=== PATIENT | female | born 1935 | race Caucasian/White ===

== ENCOUNTER 2024-06-11 15:18 | Inpatient (IN) | payer OTHER, SELFPAY ==
[2024-06-11] VITALS (17 sets, daily range): BP systolic 98–148; BP diastolic 50–130; BMI 37.6; BMI 32.2
[2024-06-11 11:36] LABS: Venous Blood Gas B.E. 3.4 mmol/L (-4 to +4); Venous Blood Gas HCO3 28.5 mmol/L (22-27); Venous Blood Gas pCO2 44 mmHg (35-48); Venous Blood Gas pH 7.42 (7.32-7.43); Venous Blood Gas pO2 40 mmHg (30-50)
[2024-06-11 11:44] LABS: % Basophils 0.3 % (0-2); % Eosinophils 0.6 % (0-6); % Immature Granulocytes 1.2 % (0-0.5); % Neutrophils 85.9 % (42.2-75.2); Absolute Eosinophils 0.1 10^3/uL (0-0.7); Absolute Immature Granulocytes 0.2 10^3/uL (0-0.05); Absolute Lymphocytes 0.8 10^3/uL (1.2-3.4); Absolute Monocytes 0.8 10^3/uL (0.1-0.6); Absolute Neutrophils 11.9 10^3/uL (1.4-6.5); Hemoglobin 13.8 g/dL (12.0-16.0); Mean Corp Hgb Conc. 33.7 g/dL (33.0-37.0); Mean Corpuscular Hgb 31.7 pg (27.0-31.0); Mean Corpuscular Volume 94.3 fL (81.0-99.0); Mean Platelet Volume 10.9 fL (7.4-10.4); Nucleated Red Blood Cells % 0 %; Platelet Count 145 10^3/uL (130-400); Red Blood Cell Count 4.35 10^6/uL (4.20-5.40); Red Cell Dist. Width 15.2 % (11.5-14.5); White Blood Cell Count 13.9 10^3/uL (4.8-10.8)
--- NOTE | 2024-06-11 11:47 | ED.GENMED ---
History of Present Illness
<Westley Harding PA-C - Last Filed: 06/11/24 14:59>
General
Chief Complaint: Breathing Problem
Time Seen by Provider: 06/11/24 11:14
History of Present Illness
History of Present Illness:
88-year-old female with history of CKD and asthma presents to the emergency department for evaluation of shortness of breath for the past 'several days'. Patient was reportedly admitted to [facility] just over 1 month ago for
shortness of breath and diagnosed with an asthma exacerbation. She was discharged home on a lengthy taper of prednisone and still remains on a 5 mg dose of prednisone at this time. She is not chronically on home oxygen. EMS reports there was some
suggestion of possible heart failure however documentation provided at time of my evaluation does not support this. Patient denies any chest pain or leg swelling. Denies any productive cough, fever, chills, or sweats.
Review of Systems
<Westley Harding PA-C - Last Filed: 06/11/24 14:59>
Review of Systems
Allergies reviewed?: Yes
All Other Systems: ROS reviewed and negative except as documented in HPI and ROS
Phy Exam
<Westley Harding PA-C - Last Filed: 06/11/24 14:59>
Physical Exam
Physical Exam:
GEN: Acute respiratory distress, well-developed well-nourished
HEENT: Oral mucosa moist, no scleral icterus, no elevated JVD
Cardiac: Regular rate, no murmurs
Lung: Respiratory distress with tachypnea, accessory muscle use, and conversational dyspnea. Diminished bibasilar breath sounds but otherwise globally clear lungs
MSK: No gross deformity or injuries, no lower extremity edema bilaterally
Skin: Good color, no pallor or jaundice, no rashes
Neuro: AO x3, moves all extremities freely
Psych: Calm, cooperative
Scores
<Westley Harding PA-C - Last Filed: 06/11/24 14:59>
Heart Failure Risk
Heart Failure Risk Score: Not Applicable
Sepsis
<Westley Harding PA-C - Last Filed: 06/11/24 14:59>
Sepsis Screening
Sepsis Assessment: Sepsis Ruled Out
Sepsis Screen
Sepsis Screen: Sepsis Ruled Out
Date: 06/11/24
Time: 14:59
Course
<Westley Harding PA-C - Last Filed: 06/11/24 14:59>
Orders/Labs/Results
Orders:
Orders
06/11/24 11:15
Electrocardiogram (*1) Urgent
Reason for Study: Shortness of Breath
EKG- Treatment ONCE
CR Chest Portable - 1 View Urgent
Comment:
Reason For Exam: SOB
Reason Study Needs to be Portable: Other
06/11/24 11:25
COVID-19 Antigen Urgent
Source: Nasal Swab
Complete Blood Count/With Diff Urgent
Comprehensive Metabolic Panel Urgent
D-Dimer Urgent
NT-proBNP Urgent
PTT Urgent
Comment: ADD ON
Troponin I Urgent
Venous Blood Gas Urgent
%Oxygen/Room Air: 78
Influenza A+B Rapid Molecular Urgent
BETTINA Source: Nasal Swab
Specimen Description:
06/11/24 12:16
CT Chest PE Study Urgent
Comment:
Reason For Exam: SOB, elevated dimer
06/11/24 13:32
Heparin 8,000 units IV NOW STA
Nursing to Place Non Medication Order As Directed
Physician Order: PTT 6 hours after initial start of Heparin infusion
Above order entered?: Yes
06/11/24 13:42
Echo 2D MMode Color/Doppler Stat
Reason for Study: saddle PE
Cardiology Consult: Kaylen Bradley
Heparin 10,000 units .ROUTE .STK-MED ONE
Heparin 01262 Units/250 ml 25,000 units in 250 ml .ROUTE .STK-MED
06/11/24 13:45
Heparin 45748 Units/250 ml 25,000 units in 250 ml IV PER PROTOCOL
Weight to be used for heparin protocol in kilograms (kg):: 99.4
Protocol:: DVT/PE
PTT Goal Range to be used:: PTT 73 to 111 seconds
Order type:: Initial
INITIAL Infusion Dose (UNITS/KG/hr) & then follow protocol:: 18 units/kg/hr
Infusion Dose in UNITS/hr & then follow protocol (UNITS/hr):: 1,800
INFUSION RATE in mL/hr & then follow protocol (mL/hr):: 18
For DVT/PE algorithm, re-bolus for low PTT?: Yes
PTT less than or equal to 64 seconds:: Re-bolus 80 units/kg (max 10,000units). Increase by 400 units/hr
(+ 4mL/hr)
PTT 64.1 to 72.9 seconds:: Re-bolus 40 units/kg (max 5,000 units). Increase by 200 units/hr
(+ 2mL/hr)
PTT 73 to 111 seconds:: Target Range. No change in rate.
PTT 111.1 to 130.9 seconds:: Decrease rate by 200 units/hr (- 2 mL/hr)
PTT 131 to 199.9 seconds:: HOLD for 1 hr. Then decrease by 300 units/hr (- 3mL/hr)
PTT greater than or equal to 200 seconds:: HOLD for 2 hrs & Notify Provider. Then decrease by 400 units/hr
(- 4mL/hr)
Lab follow-up:: Each change, PTT q6h until 2 consecutive are therapeutic. Then
PTT daily.
06/11/24 13:46
Heparin 4,000 units IV PRN PRN
Heparin 8,000 units IV PRN PRN
06/11/24 13:50
Add On- LAB Urgent
Tests Added?: ptt
06/11/24 14:00
Flush (0.9% Sodium Chloride) [Flush (Nss)] See Dose Instructions IV PER PROTOCOL
06/11/24 14:48
Admit/Transfer Patient As Directed
Co-Sign Provider:
Level of Care: Inpatient admission
Assign to:: ICU
Physician / Group: Rhonda Lombardo - hospitalists
Diagnosis: acute PE - saddle
Reason for Hospitalization: acute PE - saddle - IV heparin, hypoxia
Expected length of stay greater than two midnights?: Yes
ELOS- Estimated Length of Stay in days: 3
I certify the patient meets the requirements for IP care: Yes
PRN Pain Medication Management As Directed
May give lesser potent ordered pain med per pt: Yes
preference::
Protocol:: Medication orders for pain may be administered in a
manner that supports deferring to patient preference
when the pt is:
- Requesting an ordered lesser potent pain medication.
Least to most potent pain medications are defined
as: acetaminophen < NSAID < tramadol < opioids
(morphine, oxycodone, hydromorphone).
- Requesting a lesser dose of the same medication IF
ORDERED.
- Requesting a less intrusive route of administration
if both routes are prescribed by the provider (PO <
IV).
06/11/24 14:49
Code Status As Directed
Resuscitation Status: Full Code
06/11/24 19:50
PTT Urgent
Abnormal Lab Results
06/11/24
11:25
WBC 13.9 H 10^3/uL
(4.8-10.8)
MCH 31.7 H pg
(27.0-31.0)
RDW 15.2 H %
(11.5-14.5)
MPV 10.9 H fL
(7.4-10.4)
Abs Immat Gran (auto) 0.2 H 10^3/uL
(0-0.05)
Absolute Neuts (auto) 11.9 H 10^3/uL
(1.4-6.5)
Absolute Lymphs (auto) 0.8 L 10^3/uL
(1.2-3.4)
Absolute Monos (auto) 0.8 H 10^3/uL
(0.1-0.6)
Immature Gran % 1.2 H %
(0-0.5)
Neutrophils % 85.9 H %
(42.2-75.2)
Lymphocytes % 6.0 L %
(20.5-51.1)
D-Dimer 5.12 H ug/mlFEU
(0.00-0.50)
VBG HCO3 28.5 H mmol/L
(22-27)
BUN 25 H mg/dl
(7-17)
Creatinine 1.3 H mg/dL
(0.6-1.0)
Glucose 128 H mg/dl
(70-99)
Troponin I 0.087 H* ng/ml
06/11/24 11:25
06/11/24 11:25
Vital Signs
Initial and Last Documented VS:
Initial Vital Signs
Pulse Resp BP Pulse Ox
100 32 125/76 91
06/11/24 11:13 06/11/24 11:13 06/11/24 11:13 06/11/24 11:13
Last Documented Vital Signs
Temp Pulse Resp BP Pulse Ox
98.7 F 97 24 107/63 97
06/11/24 11:14 06/11/24 14:15 06/11/24 14:15 06/11/24 14:00 06/11/24 14:15
<Polo Lamb MD - Last Filed: 06/11/24 13:54>
Orders/Labs/Results
Orders:
Orders
06/11/24 11:15
Electrocardiogram (*1) Urgent
Reason for Study: Shortness of Breath
EKG- Treatment ONCE
CR Chest Portable - 1 View Urgent
Comment:
Reason For Exam: SOB
Reason Study Needs to be Portable: Other
06/11/24 11:25
COVID-19 Antigen Urgent
Source: Nasal Swab
Complete Blood Count/With Diff Urgent
Comprehensive Metabolic Panel Urgent
D-Dimer Urgent
NT-proBNP Urgent
PTT Urgent
Comment: ADD ON
Troponin I Urgent
Venous Blood Gas Urgent
%Oxygen/Room Air: 78
Influenza A+B Rapid Molecular Urgent
BETTINA Source: Nasal Swab
Specimen Description:
06/11/24 12:16
CT Chest PE Study Urgent
Comment:
Reason For Exam: SOB, elevated dimer
06/11/24 13:32
Heparin 8,000 units IV NOW STA
Nursing to Place Non Medication Order As Directed
Physician Order: PTT 6 hours after initial start of Heparin infusion
Above order entered?: Yes
06/11/24 13:42
Echo 2D MMode Color/Doppler Stat
Reason for Study: saddle PE
Cardiology Consult: Kaylen Bradley
Heparin 10,000 units .ROUTE .STK-MED ONE
Heparin 37499 Units/250 ml 25,000 units in 250 ml .ROUTE .STK-MED
06/11/24 13:45
Heparin 09466 Units/250 ml 25,000 units in 250 ml IV PER PROTOCOL
Weight to be used for heparin protocol in kilograms (kg):: 99.4
Protocol:: DVT/PE
PTT Goal Range to be used:: PTT 73 to 111 seconds
Order type:: Initial
INITIAL Infusion Dose (UNITS/KG/hr) & then follow protocol:: 18 units/kg/hr
Infusion Dose in UNITS/hr & then follow protocol (UNITS/hr):: 1,800
INFUSION RATE in mL/hr & then follow protocol (mL/hr):: 18
For DVT/PE algorithm, re-bolus for low PTT?: Yes
PTT less than or equal to 64 seconds:: Re-bolus 80 units/kg (max 10,000units). Increase by 400 units/hr
(+ 4mL/hr)
PTT 64.1 to 72.9 seconds:: Re-bolus 40 units/kg (max 5,000 units). Increase by 200 units/hr
(+ 2mL/hr)
PTT 73 to 111 seconds:: Target Range. No change in rate.
PTT 111.1 to 130.9 seconds:: Decrease rate by 200 units/hr (- 2 mL/hr)
PTT 131 to 199.9 seconds:: HOLD for 1 hr. Then decrease by 300 units/hr (- 3mL/hr)
PTT greater than or equal to 200 seconds:: HOLD for 2 hrs & Notify Provider. Then decrease by 400 units/hr
(- 4mL/hr)
Lab follow-up:: Each change, PTT q6h until 2 consecutive are therapeutic. Then
PTT daily.
06/11/24 13:46
Heparin 4,000 units IV PRN PRN
Heparin 8,000 units IV PRN PRN
06/11/24 13:50
Add On- LAB Urgent
Tests Added?: ptt
06/11/24 14:00
Flush (0.9% Sodium Chloride) [Flush (Nss)] See Dose Instructions IV PER PROTOCOL
06/11/24 14:48
Admit/Transfer Patient As Directed
Co-Sign Provider:
Level of Care: Inpatient admission
Assign to:: ICU
Physician / Group: Rhonda Lombardo - hospitalists
Diagnosis: acute PE - saddle
Reason for Hospitalization: acute PE - saddle - IV heparin, hypoxia
Expected length of stay greater than two midnights?: Yes
ELOS- Estimated Length of Stay in days: 3
I certify the patient meets the requirements for IP care: Yes
PRN Pain Medication Management As Directed
May give lesser potent ordered pain med per pt: Yes
preference::
Protocol:: Medication orders for pain may be administered in a
manner that supports deferring to patient preference
when the pt is:
- Requesting an ordered lesser potent pain medication.
Least to most potent pain medications are defined
as: acetaminophen < NSAID < tramadol < opioids
(morphine, oxycodone, hydromorphone).
- Requesting a lesser dose of the same medication IF
ORDERED.
- Requesting a less intrusive route of administration
if both routes are prescribed by the provider (PO <
IV).
06/11/24 14:49
Code Status As Directed
Resuscitation Status: Full Code
06/11/24 19:50
PTT Urgent
Abnormal Lab Results
06/11/24
11:25
WBC 13.9 H 10^3/uL
(4.8-10.8)
MCH 31.7 H pg
(27.0-31.0)
RDW 15.2 H %
(11.5-14.5)
MPV 10.9 H fL
(7.4-10.4)
Abs Immat Gran (auto) 0.2 H 10^3/uL
(0-0.05)
Absolute Neuts (auto) 11.9 H 10^3/uL
(1.4-6.5)
Absolute Lymphs (auto) 0.8 L 10^3/uL
(1.2-3.4)
Absolute Monos (auto) 0.8 H 10^3/uL
(0.1-0.6)
Immature Gran % 1.2 H %
(0-0.5)
Neutrophils % 85.9 H %
(42.2-75.2)
Lymphocytes % 6.0 L %
(20.5-51.1)
D-Dimer 5.12 H ug/mlFEU
(0.00-0.50)
VBG HCO3 28.5 H mmol/L
(22-27)
BUN 25 H mg/dl
(7-17)
Creatinine 1.3 H mg/dL
(0.6-1.0)
Glucose 128 H mg/dl
(70-99)
Troponin I 0.087 H* ng/ml
06/11/24 11:25
06/11/24 11:25
Vital Signs
Initial and Last Documented VS:
Initial Vital Signs
Pulse Resp BP Pulse Ox
100 32 125/76 91
06/11/24 11:13 06/11/24 11:13 06/11/24 11:13 06/11/24 11:13
Last Documented Vital Signs
Temp Pulse Resp BP Pulse Ox
98.7 F 97 24 107/63 97
06/11/24 11:14 06/11/24 14:15 06/11/24 14:15 06/11/24 14:00 06/11/24 14:15
<Westley Harding PA-C - Last Filed: 06/11/24 14:59>
MDM/Problems Addressed
MDM/Problems Addressed:
On initial evaluation the patient was noted to be hypoxic with increased respiratory effort but globally clear lungs, although she was recently admitted to an outside hospital under suspicion of asthma or other pulmonary disease, patient was worked
up for possibility of heart failure, ACS, pneumonia, or pulmonary embolism. Although her chest x-ray suspicious for acute CHF which is consistent with elevated troponin and BNP, the patient's D-dimer was markedly elevated thus prompting us to send
her for an urgent PE study which revealed a saddle pulmonary embolism. A PERT alert was called and the case was discussed with interventional radiology, radiology, and menhaden vessel pilot. Given her hemodynamic stability, a stat echo was ordered showing
RV hypokinesis and dilation. Case again discussed with menhaden vessel pilot, as the patient remains hemodynamically stable and tolerating supplemental oxygen she will be maintained on heparin pending further evaluation management, will be admitted to the
hospitalist service to the intensive care unit for further care
<Westley Harding PA-C - Last Filed: 06/11/24 14:59>
Comment
Comment:
EKG independently interpreted by me shows normal sinus rhythm with a right bundle branch block at a rate of [address] changes suspicious for ischemia
*Critical Care Note
Total Time (30-74mins, 75-104mins- exclusive of procedures): 90 minutes
comment:
Critical care time: 90 mins
Critical care time was exclusive of: Separately billable procedures, treating other patients, and teaching time
Critical care was necessary to treat or prevent imminent or life-threatening deterioration of the following conditions: Saddle pulmonary embolism, respiratory failure with hypoxia
Critical care time spent personally by me on the following activities:
[x] Review of old charts
[x] Obtaining history from patient or surrogate
[x] Ordering and review of the laboratory studies
[x] Ordering and review of radiographic studies
[x] Ordering and performing treatments and interventions
[x] Patient patient's response to treatment
[x] Development of treatment plan with patient or surrogate
ED Attending Note
<Westley Harding PA-C - Last Filed: 06/11/24 14:59>
-
Portions of this chart may have been created with voice recognition software.� Occasional wrong word or��sound alike� substitutions may have occurred due to the inherent limitations of voice recognition software.
<Polo Lamb MD - Last Filed: 06/11/24 13:54>
ED Attending Note
Patient seen and examined by attending physician: Yes
ED Attending Note:
I have seen and evaluated the patient with a [id number] encounter. I have spoken to the advance practicer provider and involved in the medical history, the physical exam, medical decision making.
Evaluation and management service: agree unless noted differently below.
Results interpretation: agree unless noted differently below.
Focused HPI: 88-year-old female with past medical history of asthma, hypertension, hyperlipidemia, GERD who presents to the emergency department for evaluation of shortness of breath. Patient reports symptoms started a few days ago and have been
worsening since that time. She notes that she was hospitalized in May twice at [facility] for asthma exacerbation with similar symptoms. She was noted to be hypoxic for EMS requiring nonrebreather on the way to the hospital. She denies any chest
pain. She has some slight swelling in her legs she thinks is chronic. Denies any other complaints.
Physical exam: Awake alert not in distress. She is tachypneic and hypoxic requiring 6 L nasal cannula. She is tachycardic. Normotensive. Afebrile. Lungs sound clear to auscultation. No cardiac rubs gallops or murmurs appreciated. She has
trace edema in her legs.
Medical Decision Makin-year-old female presents with shortness of breath for the past few days; similar episodes requiring hospitalization for asthma in May. Vitals and exam as above. Labs sent off CBC showed leukocytosis. CMP showed mild
renal insufficiency. Marginal elevation of troponin, proBNP elevated. Question of some pulmonary edema on chest x-ray but patient has clear lungs on exam and D-dimer was elevated and so she was sent for a CTA which showed significant pulmonary
embolism. PERT alert called. Started on heparin. PA to discuss with pulmonary/menhaden vessel pilot and IR. Will admit to hospitalist.
Discharge Plan
Departure
Patient Disposition: Admit
Date of Disposition: 06/11/24
Time of Disposition: 13:47
Admit to: ICU
Presentation/result/management discussed w/ accepting MD/DO: Hospitalist
Discharge Problem:
Acute saddle pulmonary embolism
Prescriptions:
No Action
prednisone 10 mg Tablet
10 mg PO DAILY
thiamine HCl (vitamin B1) 100 mg Tablet
100 mg PO HS
levothyroxine 100 mcg Tablet
100 mcg PO DAILY
verapamil 180 mg Capsule,Ext Rel. Pellets 24 Hr
180 mg PO DAILY
lansoprazole 30 mg Capsule,Delayed Release(Dr/Ec)
30 mg PO DAILY
fluticasone propion-salmeterol 500-50 mcg/dose Blister With Device
1 inh INHALATION R BID
montelukast 10 mg Tablet
10 mg PO HS
metoprolol succinate 25 mg Tablet Extended Release 24 Hr
25 mg PO BID
lamotrigine 100 mg Tablet
100 mg PO DAILY
doxazosin 2 mg Tablet
2 mg PO BID
ezetimibe 10 mg Tablet
10 mg PO DAILY
bupropion HCl 300 mg Tablet Extended Release 24 Hr
300 mg PO DAILY
quetiapine 50 mg Tablet
50 mg PO HS
Spiriva Respimat 2.5 mcg/actuation Mist
2 inh INHALATION R DAILY
magnesium oxide 400 mg magnesium Tablet
400 mg PO HS
Referrals:
Stephanie Darnell MD [Family Provider] -
Interventions
Interventions:
*Risk Screen - Suicide Last Done: 06/11/24 11:28
*General Assessment Last Done: 06/11/24 11:28
*Neglect/Abuse Screening Last Done: 06/11/24 11:28
*ED- Fall Risk Assessment Last Done: 06/11/24 11:28
*ED COVID-19 Vaccine History Last Done: 06/11/24 11:28
ED- Cardiac Assessment Last Done: 06/11/24 11:28
ED- Pulmonary Assessment Last Done: 06/11/24 11:28
Discharge Date and Time
Print Language: UGANDAN
[2024-06-11 11:49] LABS: ALT (SGPT) 19 U/L (0-35); AST (SGOT) 23 U/L (14-36); Albumin 3.9 g/dl (3.5-5.0); Alkaline Phosphatase 74 U/L (38-126); Blood Urea Nitrogen 25 mg/dl (7-17); Calcium 9.8 mg/dl (8.4-10.2); Carbon Dioxide 30 mmol/L (22-30); Chloride 102 mmol/L (98-107); Estimated Creatinine Clearance 35 ml/min; Glucose 128 mg/dl (70-99); Potassium 4.8 mmol/L (3.5-5.1); Sodium 140 mmol/L (135-145); Total Protein 6.3 g/dl (6.3-8.2)
[2024-06-11 11:52] LABS: COVID-19 Antigen Negative (Negative)
[2024-06-11 11:55] LABS: D-Dimer 5.12 ug/mlFEU (0.00-0.50)
[2024-06-11 12:04] LABS: NT-proBNP 6780 pg/ml; Troponin I 0.087 ng/ml
[2024-06-11] MEDS: HEPARIN 8000 UNITS IV (13:48)
[2024-06-11] MEDS: HEPARIN 25000 UNITS/250 ML IV (13:49)
--- NOTE | 2024-06-11 14:20 | HPS.HSE ---
Family Physician
-
Family Physician: Stephanie Darnell
Chief Complaint
-
SOB
History of Present Illness
88 y/o F hx of CKD, asthma, HTN, HLD, Asthma, Hypothyroidism presents to ER for SOB x several days. Patient recently admitted at [facility] in for asthma exacerbation and remains on oral steroids. Has had follow up with pulmonary with
positive progress. Has been living with daughter locally; has been weak and relatively immobile. Complaints of progressive SOB and inspiratory chest pain x few days. No other complaints. EMS was called today for worsening SOB. Brought to ER and
workup revealed saddle PE - hemodynamically stable. At present, feels comfortable. Is on 6L NC. ICU contacted for admission.
Medical History
Past Medical History
Past Medical History: Reports Other (CKD, asthma, HTN, HLD, Asthma, Hypothyroidism)
Past Surgical History: Reports None
Social History
Tobacco: Non-smoker
Alcohol: None
Living: With Family
Employment: Retired
Family History
Family History: Not pertinent
Allergies / Home Medications
Allergies reflects when Allergies were last updated in [facility].
Home Medications with original date entered in [facility]
Allergy/Medication List:
Allergies
Allergy/AdvReac Type Severity Reaction Status Date / Time
No Known Allergies Allergy Unverified 06/11/24 13:41
Home Medications
bupropion HCl 300 mg 24 hr tablet, extended release 300 mg PO DAILY 06/11/24
doxazosin 2 mg tablet 2 mg PO BID 06/11/24
ezetimibe 10 mg tablet 10 mg PO DAILY 06/11/24
fluticasone 500 mcg-salmeterol 50 mcg/dose blistr powdr for inhalation 1 inh inhalation R BID 06/11/24
lamotrigine 100 mg tablet 100 mg PO DAILY 06/11/24
lansoprazole 30 mg capsule,delayed release 30 mg PO DAILY 06/11/24
levothyroxine 100 mcg tablet 100 mcg PO DAILY 06/11/24
magnesium oxide 400 mg PO HS 06/11/24
metoprolol succinate 25 mg tablet,extended release 24 hr 25 mg PO BID 06/11/24
montelukast 10 mg tablet 10 mg PO HS 06/11/24
prednisone 10 mg tablet 10 mg PO DAILY 06/11/24
quetiapine 50 mg tablet 50 mg PO HS 06/11/24
thiamine HCl (vitamin B1) 100 mg tablet 100 mg PO HS 06/11/24
tiotropium bromide 2.5 mcg/actuation mist for inhalation (Spiriva Respimat) 2 inh inhalation R DAILY 06/11/24
verapamil 180 mg 24 hr capsule,extended release 180 mg PO DAILY 06/11/24
Review of Systems
-
A 12 point ROS was completed and negative except as noted: Yes
Physical Exam
Vital Signs
Vital Signs
Temp Pulse Resp BP Pulse Ox
98.7 F 97 24 107/63 97
06/11/24 11:14 06/11/24 14:15 06/11/24 14:15 06/11/24 14:00 06/11/24 14:15
Physical Exam
General: No Apparent Distress
HEENT: NormoCephalic and Anicteric
Respiratory: Clear, Wheezes and Crackles (basilar crackles - faint)
Cardiac: S1/S2 and Regular Rhythm
GI: Soft
Musculoskeletal: No Cyanosis
Neuro: AO x 3
Psych: Calm
Laboratory Results
-
06/11/24 11:25
06/11/24 11:25
Laboratory Results
Total Bilirubin 1.0 mg/dl (0.2-1.3) 06/11/24 11:25
AST 23 U/L (14-36) 06/11/24 11:25
ALT 19 U/L (0-35) 06/11/24 11:25
Alkaline Phosphatase 74 U/L (38-126) 06/11/24 11:25
Troponin I 0.087 ng/ml H* 06/11/24 11:25
Data Reviewed
-
CT Scan: Report Reviewed by me
Lab Data: Labs Reviewed by me
Impression/Plan
-
Assessment:
Acute PE
- ICU admission
- suspect provoked in setting of recent hospitalization, weakness with immobility at home
- CT: Saddle pulmonary thromboembolism with large volume bilateral clot burden. Secondary CT findings most suggestive of right heart strain.
- Echo: Normal biventricular size and systolic function without regional wall motion abnormality. Enlarged right ventricular size. Reduced right ventricular systolic function. No significant valvular disease. No prior study available for comparison.
- case discussed with ER, IR, ICU - patient currently hemodynamically stable. Will hold off acute interventions.
- continue IV Heparin drip
- check dopplers
Acute hypoxic respiratory failure on 6L NC
- monitor O2 needs
nonischemic myocardial injury in setting of acute PE
- trend trops to peak
- chest pain is inspiratory; appropriate in setting of PE
CKD - unknown stage
hx of asthma with recent exacerbation
- continue prednisone
- continue ICS
- prn nebs
Essential HTN
- hold Doxazosin
- hold CCB
- continue BB
HLD
Hypothyroidism
- continue replacement
Depression/Bipolar disorder
- continue Bupropion/Lamictal/Seroquel
Code: Full
Total Critical Care Time 78 minutes. I was immediately available to the patient and staff. I personally examined, reviewed labs, diagnostic images/reports, interpretations, treatment plans, discussed patient care with other providers and family
or caregivers (if patient is unable to make decisions), entered orders as appropriate and documented the medical record.
[2024-06-11 14:53] LABS: APTT 28.9 Sec (23.4-35.0)
--- NOTE | 2024-06-11 16:30 | CON.INTV ---
Consultation
Consultation Request
Date/Time Consultation Requested: 06/11
Date/Time Consultation Performed: 06/11
Reason for Consultation: Critical care
Medical History
-
History of Present Illness:
History obtained from the patient, and also from the daughter, and review ED records. Patient is an 88-year-old female with questionable history of asthma, hypertension, whose history dates back to March 2024 when she developed increased
shortness of breath. She was admitted to [facility] where she was hospitalized for about a week, treated for asthma exacerbation, steroids. Daughter states she was discharged on oxygen therapy, slowly getting better. Her symptoms worsened as she
was tapered off the steroids, re-presented to [facility], hospitalized for 8 days, required oxygen, steroids again. No clear information regarding blood clot. She apparently had an echocardiogram of the left febrile and was told
everything was normal. She did see her commercial decorator at [facility] about 1 to 2 weeks ago, was told her lungs are clear. However over the last week, symptoms have worsened to the point where saturation goes down to 70% despite being on 4 L at home
with activity. For this reason ambulance was called and patient was brought to [facility]. Upon arrival, pulse 100, breathing at 32, blood pressure 125/76, 91%. Workup revealed acute PE with saddle embolus. PERT alert called, CT imaging
reviewed immediately and reviewed with the ED staff. Heparin therapy had already been started. Stat echocardiogram was obtained which revealed normal LV function, dilated RV with reduced function, PA pressure 45. Hemodynamic stable, patient
required up to 15 L in the ED. We are asked to help from a critical care standpoint
Presently, patient feels breathing has improved since admission. She denies chest pain, pleurisy, leg pain, leg swelling. She does have some chronic dizziness and fell about few days ago, landing on her left side. She denies any head trauma. She
required assistance to get up by her daughter. She is typically sedentary. Normally she lives in independent living but recently she has been living with her daughter since her hospital stay in March
.
PMH: Hypertension, hyperlipidemia, questionable asthma, hypothyroidism. Records suggest chronic kidney disease but patient denied this. 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
Past Medical History
Past Medical History: None (See above)
Past Surgical History: None (See above)
Social History
Tobacco: Non-smoker
Alcohol: Former (Quit many years ago)
Drug: None
Personal:
Living: Alone (Since March living with daughter)
Employment: Retired
Family History
Family History: Other (No family history of blood clots, cancer.)
Allergies / Home Medications
Allergies
Allergy/AdvReac Type Severity Reaction Status Date / Time
No Known Allergies Allergy Unverified 06/11/24 13:41
Home Medications
�Medication �Instructions �Recorded �Confirmed �Last Taken �Type
bupropion HCl 300 mg 24 hr tablet, 300 mg PO DAILY 06/11/24 06/11/24 Unknown History
extended release
doxazosin 2 mg tablet 2 mg PO BID 06/11/24 06/11/24 Unknown History
ezetimibe 10 mg tablet 10 mg PO DAILY 06/11/24 06/11/24 Unknown History
fluticasone 500 mcg-salmeterol 50 1 inh inhalation R BID 06/11/24 06/11/24 Unknown History
mcg/dose blistr powdr for
inhalation
lamotrigine 100 mg tablet 100 mg PO DAILY 06/11/24 06/11/24 Unknown History
lansoprazole 30 mg capsule,delayed 30 mg PO DAILY 06/11/24 06/11/24 Unknown History
release
levothyroxine 100 mcg tablet 100 mcg PO DAILY 06/11/24 06/11/24 Unknown History
magnesium oxide 400 mg PO HS 06/11/24 06/11/24 Unknown History
metoprolol succinate 25 mg 25 mg PO BID 06/11/24 06/11/24 Unknown History
tablet,extended release 24 hr
montelukast 10 mg tablet 10 mg PO HS 06/11/24 06/11/24 Unknown History
prednisone 10 mg tablet 10 mg PO DAILY 06/11/24 06/11/24 Unknown History
quetiapine 50 mg tablet 50 mg PO HS 06/11/24 06/11/24 Unknown History
thiamine HCl (vitamin B1) 100 mg 100 mg PO HS 06/11/24 06/11/24 Unknown History
tablet
tiotropium bromide 2.5 2 inh inhalation R DAILY 06/11/24 06/11/24 Unknown History
mcg/actuation mist for inhalation
(Spiriva Respimat)
verapamil 180 mg 24 hr 180 mg PO DAILY 06/11/24 06/11/24 Unknown History
capsule,extended release
Review of Systems
-
All other systems: Negative unless noted
Vitals / Labs / Diagnostic Testing
Vital Signs
Temp Pulse Resp BP Pulse Ox
96.7 F L 93 18 102/82 96
06/11/24 16:22 06/11/24 16:00 06/11/24 16:00 06/11/24 15:04 06/11/24 16:00
Lab Data
06/11/24 11:25
06/11/24 11:25
Laboratory Results
06/11/24 06/11/24
11: 13:32
APTT 28.9 Cancelled
Microbiology
06/11/24 11:25 Nasal Swab Influenza Types A & B (CLAUDE) - Final
Negative for Influenza A & B, NAAT
Negative results must be combined with clinical observations
and patient history.
Nucleic Acid Amplification test (NAAT)performed on the
[employer] platform.
Diagnostic Testing:
Physical Exam
-
HEENT: Normocephalic, Anicteric and Other (Tremulous voice)
Cardiovascular: S1/S2, Regular Rhythm, Murmur (n), Rub (n), Peripheral Edema (tr) and Calf Tenderness (n)
Respiratory: Wheeze (n), Rales (Mild at base), Rhonchi (n) and Non-Labored Respirations
GI: Soft, Non Distended and Non Tender
Neurology: Awake, Alert, Oriented and No Motor Deficits (Moves all extremities)
Skin: Other (No skin rash, no bruising)
General: Comfortable
Assessment
-
88-year-old female with hypertension, hyperlipidemia, waxing and waning shortness of breath over the past 2 months with hospitalization x 2 at [facility] treated with steroids and antibiotics, sent home on oxygen. Now presents with
worsening hypoxia 70% at home despite 4 L of oxygen, found to have bilateral PE with saddle embolus, RV strain, elevated cardiac biomarkers. Patient started on heparin therapy admitted to ICU for further management
Acute bilateral PE
Saddle embolism
RV strain
Echo mid April normal per daughter
Acute hypoxic respiratory sufficiency, 70% on 4 L at home
Now on 15 L
Elevated cardiac biomarkers
Mild leukocytosis
Acute renal sufficiency, creatinine 1.3
Baseline not known
Hyperglycemia
Questionable history of asthma
Recent hospital stay March and April at [facility]
Treated with steroids/antibiotics
Recent fall within the last week, landed on left hip
Denies head trauma
Conditions present prior to admission
Hypertension/hyperlipidemia
History of hypothyroidism
Former alcoholic, quit many years ago
Plan/recommendations
At this time, patient is critically ill but stabilized
She is presently on mid flow oxygen, 92 to 94%
Systolic pressure 110s to 150s, heart rate 90s
She feels her breathing has improved
Denies chest pain, headaches, pleurisy
Heparin therapy started in ED
Moving forward
Reviewed pathophysiology of thromboembolic disease with patient and daughter at length
Reviewed risks for cardiac arrest,
Reviewed risks of thromboembolic disease
At this time, patient would be considered intermediate risk
RV dysfunction noted
For now we will continue with heparin therapy
Follow hemodynamics, oxygen requirement
Guzman catheter placed
Strict bedrest
Will review with interventional radiology
Patient is aware of risks of cardiac arrest, cardiac arrhythmia with CDT therapy
Patient is aware of risks of intra-abdominal bleed, cerebral bleed
She implied with daughter that she would not want aggressive measures, life support but with extensive discussion, patient remains full code. Daughter will obtain advanced directives from home
Patient made it clear that she would not want prolonged life support
I also relayed with daughter that if she were to have a cardiac event, given the extent of clot burden, age, it is unlikely she will return to her prior functional status
Daughter and patient understand
Will request records from [facility] regarding recent hospital stay x 2
Will try to contact pulmonary physician when able, seen in the last 1 to 2 weeks at which time evaluation was normal (Dr. Godoy [phone])
Reviewed at length with critical care nursing
Reviewed with ED staff, primary service, interventional radiology
TCCT 76 min
--- NOTE | 2024-06-11 18:21 | PTCARENOTE ---
Pt arrived to ICU from ER approx 1620 via stretcher. Pt oriented x3, ZHANG jacobson. HR SR with BBB, Heparin iv infusing at 1800 units/hr. L hand INT is pre-hosp and d/c'd. Pt received on 10L mid flow, O2 sat at rest is 92%. O2 increased to 12L mid flow
while eating. Lobes coarse. Pt seen by Dr Woodard at bedside, discussed possible plans of care with pt and her daughter. Presently pt with stay on Heparin iv. 16 F Guzman cath placed with sterile technique at bedside as per Yamilet. Pt maintained at
bed rest. Complete bed bath given, pt arrived with wet urine briefs. Pt with chronic sl urine incontinence, jennie care given. Sl urine odor still remains. Dinner ordered.
--- NOTE | 2024-06-11 20:12 | PTCARENOTE ---
Pt received awake alert and oriented. [place]. NSR with BBB on monitor. Currently on O2 12L midflow with sats 90-93%. POLK. Heparin gtt infusing at 1800 units per hour. Guzman draining clear yellow urine. Assessment as charted.
[2024-06-11 20:21] LABS: Troponin I 0.112 ng/ml
[2024-06-11 20:34] LABS: APTT > 200 Sec (23.4-35.0)
[2024-06-11] MEDS: ADVAIR HFA 230/21 MCG INHALER 2 PUFF INH (21:09)
[2024-06-11] MEDS: SINGULAIR 10 MG PO (21:30)
[2024-06-11] MEDS: SEROQUEL 50 MG PO (21:30)
[2024-06-11] MEDS: VITAMIN B1 100 MG PO (21:30)
[2024-06-11] MEDS: MAGNESIUM OXIDE 500 MG PO (21:30)
[2024-06-12] VITALS (25 sets, daily range): BP systolic 93–135; BP diastolic 53–116; BMI 32.2
[2024-06-12 05:06] LABS: Hematocrit 34.9 % (37.0-47.0); Hemoglobin 11.6 g/dL (12.0-16.0); Mean Corp Hgb Conc. 33.2 g/dL (33.0-37.0); Mean Corpuscular Hgb 31.5 pg (27.0-31.0); Mean Corpuscular Volume 94.8 fL (81.0-99.0); Mean Platelet Volume 10.8 fL (7.4-10.4); Platelet Count 137 10^3/uL (130-400); Red Blood Cell Count 3.68 10^6/uL (4.20-5.40); Red Cell Dist. Width 15.1 % (11.5-14.5); White Blood Cell Count 11.9 10^3/uL (4.8-10.8)
[2024-06-12] MEDS: SYNTHROID 100 MCG PO (05:06)
[2024-06-12 05:12] LABS: Blood Urea Nitrogen 26 mg/dl (7-17); Carbon Dioxide 29 mmol/L (22-30); Chloride 104 mmol/L (98-107); Estimated Creatinine Clearance 35 ml/min; Glucose 97 mg/dl (70-99); Magnesium 2.2 mg/dl (1.6-2.3); Potassium 4.2 mmol/L (3.5-5.1); Sodium 139 mmol/L (135-145); eGFR 43.81
[2024-06-12 05:21] LABS: APTT > 200 Sec (23.4-35.0)
[2024-06-12 05:22] LABS: Troponin I 0.092 ng/ml
--- NOTE | 2024-06-12 05:47 | PTCARENOTE ---
Slept well during the night. No change in assessment.
[2024-06-12] MEDS: LR 1000 IV (06:16)
--- NOTE | 2024-06-12 07:48 | PTCARENOTE ---
0700 Patient seen and examine while in bed. AAO x3 SUQUAMISH; NSR BBB 86 Trace edema
BP via left upper arm 93/56 Temp via Guzman 98.7; RR 23; 91-92% 15L via mid-flow Dyspnea at rest noted
Lungs diminished ; Abdomen soft non tender BS + Guzman draining angelica clear. call ledesma within reach
[2024-06-12] MEDS: SPIRIVA RESPIMAT 2.5 MCG 2 PUFF INH (08:00)
[2024-06-12] MEDS: ADVAIR HFA 230/21 MCG INHALER 2 PUFF INH ×2 (08:01→21:11)
[2024-06-12] MEDS: PROTONIX 40 MG PO (08:04)
[2024-06-12] MEDS: WELLBUTRIN XL (24 hour extended release) 300 MG PO (08:05)
[2024-06-12] MEDS: HEPARIN 25000 UNITS/250 ML IV (08:05)
[2024-06-12] MEDS: LAMICTAL 100 MG PO (08:05)
[2024-06-12] MEDS: ZETIA 10 MG PO (08:05)
[2024-06-12] MEDS: DELTASONE 10 MG PO (08:05)
--- NOTE | 2024-06-12 08:33 | W.PN.INTV ---
Addendum entered and electronically signed by Herb Woodard MD 06/12/24 12:11:
Patient seen and examined independently by myself. Resident note reviewed below. Assessment and plan discussed on rounds
Patient subjectively improved, feels she can speak longer sentences and more words before having to stop to catch her breath. She denies chest pain, pleurisy, lightheadedness, dizziness, palpitations, cough, hemoptysis. She was on 15 L overnight,
weaned down to 12. Respiratory notes state 6 L but this apparently was not correct.
92% on 12 L, 86% on 8 L
Blood pressure 110/60, pulse 90s, respiratory 25-30. Afebrile
Patient comfortable, conversing without difficulty, partial full sentences
Chest exam with mild crackles at the base, few inspiratory squeaks
Cardiac exam no murmurs. Abdominal exam soft. Extremities trace edema no calf tenderness
Neurologically she moves all extremities
Data reviewed
PTT greater than 200, hemoglobin stable
A/P
At this time, patient is at least stable if not slightly subjectively improved
Significant clot burden noted, RV strain
Unfortunately, she would be considered high risk for intervention. Had an extensive discussion with patient and daughter by phone
Discussed concept of 'window' where we can possibly help with thrombectomy and/heart catheter directed lytic therapy. She would be high risk for bleed and high risk for microthrombi migrating distally causing worsening cardiopulmonary status,
cardiac arrest, cardiac arrhythmia
After an extensive discussion regarding the above, would hold on further intervention and continue with heparin therapy.
Wean oxygen as able
Difficult situation as intervention may potentially cause harm, put her at risk for cardiac arrhythmia/cardiac arrest, but benefits also noted
Given subjective improvement we will continue as above
Heparin therapy dosing adjusted for appropriate weight. Reviewed with pharmacy
Reviewed with critical care nursing, respiratory care
Reviewed with primary service, interventional radiology
Reviewed with daughter at length by phone and patient at bedside. All questions answered
Remains high risk situation
TCCT 35 min
Original Note:
Today's Communication / Plan
Recommendations
Strict bedrest
Consider catheter directed thrombosis
Assessment
-
88-year-old female with past medical history of hypertension, hyperlipidemia, dyspnea and asthma who is currently being managed in the ICU for bilateral pulmonary embolism with saddle embolus, RV strain and elevated cardiac biomarkers.
Last 24 hours
� Admit to ICU
� Continue heparin therapy
� Placed on mid flow 15 L for hypoxia
� WBC 11.9, hemoglobin 11.6, platelets 137, sodium 139, potassium 4.2, BUN 26, creatinine 1.2.
#Acute bilateral pulmonary embolism�saddle embolism
#Acute hypoxic respiratory insufficiency
#Elevated cardiac biomarkers
#Leukocytosis
#Acute renal insufficiency
#Hyperglycemia
#Potential history of asthma
#Hypertension
#Hyperlipidemia
#Hypothyroidism
#Former alcoholic
Plan/recommendations
Heparin therapy started in ED. Continue heparin.
Continue mid flow oxygen �O2 saturation 92 to 94%
Continue Guzman catheter
Continue strict bedrest
Continue conversation regarding goals of care
Start cholesterol diet
Continue to hold doxazosin and metoprolol
Consider catheter directed thrombolysis for saddle pulmonary embolism. Continue conversation with IR and family.
Records have been requested from [facility] regarding recent hospital stay
ICU residential monitor will try to contact primary pulmonary physician�Dr. Godoy [phone]
Full code
Subjective Dataa
Subjective Data
Date of Service:
Date of Service: June 12, 2024
Patient reports no acute events overnight. She continues to have mild shortness of breath and dyspnea. She remains on mid flow 15 L. She reports no headaches, nausea, vomiting, chest pain, abdominal pain or numbness and tingling.
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
Review of Systems
Cardiopulmonary: Dyspnea
Objective Data
Data Reviewed
Vital Signs / I&O / Oxygen:
Vital Signs
Temp Pulse Resp BP Pulse Ox
99.1 F 87 20 100/53 90
06/12/24 07:04 06/12/24 08:04 06/12/24 08:04 06/12/24 06:00 06/12/24 08:04
Intake and Output
06/11/24 06/12/24 06/13/24
06:59 06:59 06:59
Intake Total 756 / 826 70 / 70
Output Total 577 / 607 30 / 30
Balance 179 / 219 40 / 40
SaO2 90
Nasal Cannula flow liters per 12
minute
Physical Exam
General: Comfortable
HEENT: Normocephalic and Anicteric
Cardiovascular: S1-S2 and Regular Rhythm
GI: Soft and Non Distended
Neurology: AO x 3
Skin: Warm and Dry
Labs/Micro/Reports
Lab Data
06/12/24 04:37
06/12/24 04:37
Laboratory Results
06/11/24 06/11/24 06/11/24
11:25 13:32 19:43
APTT 28.9 Cancelled > 200 H*
06/12/24
04:37
APTT > 200 H*
Microbiology
06/11/24 11:25 Nasal Swab Influenza Types A & B (CLAUDE) - Final
Negative for Influenza A & B, NAAT
Negative results must be combined with clinical observations
and patient history.
Nucleic Acid Amplification test (NAAT)performed on the
[employer] platform.
--- NOTE | 2024-06-12 09:14 | W.PN.HOSP.TC ---
Addendum entered and electronically signed by Kevin Pagan MD 06/12/24 14:20:
I saw and evaluated the patient. I reviewed the resident�s note and agree with findings and plan as documented in the resident�s note.
1. Saddle PE/massive PE
Acute hypoxic respiratory failure
-CT chest PE showing saddle embolism with signs of RV strain
-Elevated troponin/proBNP level
-Echocardiogram showed elevated RV pressure.
-Pulmonology following and discussed with interventional radiology due to increased risk holding on catheter guided thrombolysis. Family in agreement
-If patient develops obstructive shock will require to be started on vasopressors. Limiting IVF with increased RV strain.
-Patient oxygen requirement increased to 15 L/min, wean off as possible
-Continue monitoring in ICU
Total critical care time 40 mins . Total critical care time documented does not include time spent on separately billed procedures or the services of residents, students, nurses or physician assistants. I personally saw and examined the patient. I
have reviewed all diagnostic interpretations and treatment plans as written. I was present for the gilmore portions of any procedures performed and the inclusive time noted in any critical care statement. Critical care time includes patient management
by me, time spent at the patients bedside, time to review lab and imaging results, discussing patient care, documentation in the medical record, and time spent with the family or caregiver.
-
Original Note:
Today's Communication/Plan
-
-Continue heparin drip
-Continue bedrest
-Continue follow vitals
-Follow-up lower extremity US results
Assessment / Plan
Assessment / Plan
The patient is 88-year-old female with past medical history of hypertension, hyperlipidemia, dyspnea and asthma who was brought to the emergency department with worsening shortness of breath. Her chest CT showed acute extensive PE with saddle
embolus for which she was admitted to the ICU. She was started on heparin drip protocol and has been on mid flow nasal cannula oxygen at 12 L. She has a close follow-up with ICU given RV strain and elevated troponin levels.
Problem list
Acute bilateral extensive pulmonary embolism
Acute hypoxic respiratory failure
Acute kidney injury
Elevated troponin levels
Leukocytosis
History of asthma
History of hypertension
History of hyperlipidemia
History of hypothyroidism
PLAN
# Acute bilateral extensive pulmonary embolism
-CT shows saddle embolism and findings most suggestive of right heart strain.
-Echo shows:Enlarged right ventricular size. Reduced right ventricular systolic function
-Cautious with IV fluids amount
-Patient hemodynamically stable -not considered interventions for now
-Continue heparin drip protocol
-Peripheral venous ultrasound
# Acute hypoxic respiratory failure
-History of asthma
-On supplemental oxygen via nasal cannula
-Saturating 90-92% with 12L
-Close follow-up at ICU
-Continue inhalers as needed
-Continue 10 mg of prednisone
# Acute kidney injury
#Elevated troponin levels
-Nonischemic cardiac injury
-Likely secondary to PE
-Troponin levels are going down-trend levels
#Essential HTN
- hold Doxazosin
- hold CCB
- continue BB
#HLD
-Continue ezetimibe
#Hypothyroidism
-Continue levothyroxine
#Depression/Bipolar disorder
-Continue Bupropion/Lamictal/Seroquel
#DVT prophylaxis
-On heparin drip
#CODE STATUS: Full code
Anticipated Discharge: 24 - 48 hours
Subjective/Interval History
-
Date of Service: June 12, 2024
Objective Data
-
Labs:
Laboratory Results
06/12/24 06/12/24
04:37 13:20
WBC 11.9 H
Hgb 11.6 L
Hct 34.9 L
Plt Count 137
APTT > 200 H* Pending
Sodium 139
Potassium 4.2
Chloride 104
Carbon Dioxide 29
BUN 26 H
Creatinine 1.2 H
Glucose 97
Calcium 9.0
Vital Signs:
Vital Signs
Temp Pulse Resp BP Pulse Ox
99.1 F 87 20 109/66 90
06/12/24 07:04 06/12/24 08:04 06/12/24 08:04 06/12/24 08:00 06/12/24 08:04
I&O
06/11/24 06/12/24 06/13/24
06:59 06:59 06:59
Intake Total 756 / 826 70 / 70
Output Total 577 / 607 30 / 30
Balance 179 / 219 40 / 40
Physical Exam
-
General: Well Developed, Well Nourished, No Apparent Distress and Appears Chronically Ill
HEENT: Normocephalic and Atraumatic
Respiratory: Other (On supplemental oxygen via nasal cannula)
Cardiac: Regular Rhythm and Tachycardic
GI: Soft, Nontender and Nondistended
Genito-urinary: Guzman
Musculoskeletal: No Clubbing and No Cyanosis
Skin: Warm and Dry
Neuro: Awake, Alert, Oriented and AO x 3
Psych: Calm
[2024-06-12 13:54] LABS: APTT 77.6 Sec (23.4-35.0)
--- NOTE | 2024-06-12 14:51 | CM ---
CM following re: discharge planning.
Reviewed pt's chart,met with pt and pt's son Darryn at bedside.
Pt is an 88 year old female, admitted with primary dx of acute bilateral pulmonary embolism�saddle embolism. Per rounds meeting, pt requires 12 L Midflow NC, continue supportive care.
Pt reports she lives alone in a rented room in a 2SH with other people, 11 steps to enter, has 2 supportive children. Pt reports she ambulates with a cane when goes outside, does not have home O2. No VN or SNF history.
PCP: Stephanie Darnell
Pharmacy: [facility]
D/C plan: most likely home with VN services if recommended.
CM will follow with discharge plan updates as hospitalization progresses
--- NOTE | 2024-06-12 17:04 | PTCARENOTE ---
Patient on bed rest. On 10L of oxygen via mid-flow. While turning for bedpan POx drops to 86%. Able to quickly require while at rest HOB elevated 30 degrees to 91%/10L via mid-flow Patient's daughter and son updates at bedside
--- NOTE | 2024-06-12 20:00 | PTCARENOTE ---
Assumed care of patient at 1900, nursing assessment completed and as documented. Patient Ox3, SR/ST on monitor, on 10L MF with sats 90-92%. Patient tachypneic at time's rate 20-30's, reports decreased pain from prior when taking deep breaths. Temp
blevins in place draining clear and yellow urine. Heparin infusing via R wrist PIV, R AC PIV patent. Heparin titrated per protocol, see worklist. PTT due at 1999. Medications given whole in applesauce without difficulty. Repositioned in bed, call ledesma
within reach, care ongoing.
[2024-06-12 20:22] LABS: APTT 100.9 Sec (23.4-35.0)
[2024-06-12] MEDS: SEROQUEL 50 MG PO (21:12)
[2024-06-12] MEDS: MAGNESIUM OXIDE 500 MG PO (21:13)
[2024-06-12] MEDS: SINGULAIR 10 MG PO (21:13)
[2024-06-12] MEDS: VITAMIN B1 100 MG PO (21:13)
[2024-06-13] VITALS (24 sets, daily range): BP systolic 93–153; BP diastolic 57–105; BMI 31.9
--- NOTE | 2024-06-13 04:56 | PTCARENOTE ---
No changes to physical assessment. Hygiene care performed and repositioned. Remains on 10L MF. Heparin gtt remains infusing, see worklist for titration. VSS, call ledesma within reach, care ongoing.
[2024-06-13 05:02] LABS: Hematocrit 34.7 % (37.0-47.0); Hemoglobin 11.4 g/dL (12.0-16.0); Mean Corp Hgb Conc. 32.9 g/dL (33.0-37.0); Mean Corpuscular Hgb 31.6 pg (27.0-31.0); Mean Corpuscular Volume 96.1 fL (81.0-99.0); Mean Platelet Volume 11.1 fL (7.4-10.4); Platelet Count 146 10^3/uL (130-400); Red Blood Cell Count 3.61 10^6/uL (4.20-5.40); Red Cell Dist. Width 14.9 % (11.5-14.5); White Blood Cell Count 10.7 10^3/uL (4.8-10.8)
[2024-06-13] MEDS: SYNTHROID 100 MCG PO (05:12)
[2024-06-13 05:18] LABS: ALT (SGPT) 13 U/L (0-35); AST (SGOT) 22 U/L (14-36); Alkaline Phosphatase 60 U/L (38-126); Blood Urea Nitrogen 20 mg/dl (7-17); Calcium 8.8 mg/dl (8.4-10.2); Carbon Dioxide 29 mmol/L (22-30); Chloride 105 mmol/L (98-107); Estimated Creatinine Clearance 38 ml/min; Glucose 94 mg/dl (70-99); Potassium 4.2 mmol/L (3.5-5.1); Sodium 139 mmol/L (135-145); Total Bilirubin 0.8 mg/dl (0.2-1.3); Total Protein 5.2 g/dl (6.3-8.2); eGFR 48.63
--- NOTE | 2024-06-13 07:22 | W.PN.HOSP.TC ---
Today's Communication/Plan
-
-Transferred to IMU
-Wean supplemental oxygen as able to
- IV fluids DC ed-be cautious due RV strain
Assessment / Plan
Assessment / Plan
The patient is 88-year-old female with past medical history of hypertension, hyperlipidemia, dyspnea and asthma who was brought to the emergency department with worsening shortness of breath. Her chest CT showed acute extensive PE with saddle
embolus for which she was admitted to the ICU. She was started on heparin drip protocol and has been on mid flow nasal cannula oxygen at 12 L. She has a close follow-up with ICU given RV strain and elevated troponin and ProBNP l levels.
Problem list
Acute bilateral extensive pulmonary embolism
Acute hypoxic respiratory failure
Acute kidney injury
Elevated troponin levels
Leukocytosis
History of asthma
History of hypertension
History of hyperlipidemia
History of hypothyroidism
PLAN
# Acute bilateral extensive pulmonary embolism
-CT shows saddle embolism and findings most suggestive of right heart strain.
-Echo shows:Enlarged right ventricular size. Reduced right ventricular systolic function
-Patient hemodynamically stable -improvement with her breathing-not considered interventions
-DC IV fluids -tolerating oral taking -cautious with IV fluids amount-
-Continue heparin drip protocol with a plan to switch DOAC-employment case manager involved
-Peripheral venous ultrasound: nonocclusive thrombus in the left mid and distal femoral vein, with occlusive thrombus within the left popliteal vein.
# Acute hypoxic respiratory failure
-History of asthma
-On supplemental oxygen via nasal cannula
-Saturating 90-92% with 8 L
-Wean supplemental Oxygen as able to
-Transferred to IMU
-Continue inhalers as needed
-Continue 10 mg of prednisone
# Acute kidney injury
-CR 1.1
-Improving
#Elevated troponin levels
-Nonischemic cardiac injury
-Likely secondary to PE
-Troponin levels trended down
-No need to track for now
#Essential HTN
-BP on the lower side
- hold Doxazosin
- hold CCB
- continue BB
#HLD
-Continue ezetimibe
#Hypothyroidism
-Continue levothyroxine
#Depression/Bipolar disorder
-Continue Bupropion/Lamictal/Seroquel
#DVT prophylaxis
-On heparin drip
#CODE STATUS: Full code
Anticipated Discharge: 24 - 48 hours
Subjective/Interval History
-
Date of Service: June 13, 2024
No any acute events since yesterday. She is maintaining 90-92 oxygen saturation on supplemental oxygen via nasal cannula at 8 L. Patient reports feeling better and states her shortness of breath is not worse than her baseline. She denies chest
pain or back pain.
Objective Data
-
Labs:
Laboratory Results
06/12/24 06/13/24 06/13/24
20:01 02:00 04:30
WBC 10.7
Hgb 11.4 L
Hct 34.7 L
Plt Count 146
APTT 100.9 H Cancelled 133.0 H
Sodium 139
Potassium 4.2
Chloride 105
Carbon Dioxide 29
BUN 20 H
Creatinine 1.1 H
Glucose 94
Calcium 8.8
Total Bilirubin 0.8
AST 22
ALT 13
Alkaline Phosphatase 60
06/13/24
12:15
WBC
Hgb
Hct
Plt Count
APTT Pending
Sodium
Potassium
Chloride
Carbon Dioxide
BUN
Creatinine
Glucose
Calcium
Total Bilirubin
AST
ALT
Alkaline Phosphatase
Vital Signs:
Vital Signs
Temp Pulse Resp BP Pulse Ox
97.8 F 87 23 99/61 86
06/13/24 03:19 06/13/24 05:00 06/13/24 05:00 06/13/24 05:00 06/13/24 05:00
I&O
06/12/24 06/13/24 06/14/24
06:59 06:59 06:59
Intake Total 756 / 826 1300 / 1300
Output Total 577 / 607 1425 / 1425
Balance 179 / 219 -125 / -125
Review of Systems
-
History Source: Patient
EENT: Reports No Symptoms Reported and Other (Reported some minimal bleeding from her nose/started given supplemental oxygen with humidifier)
Respiratory: Reports Other (Shortness of breath)
Cardiac: Reports No Symptoms
Abdomen/GI: Reports No Symptoms
Genitourinary: Reports No Symptoms
Musculoskeletal: Reports Edema and Other (Generalized weakness)
Skin: Reports No Symptoms
Neuro: Reports No Symptoms
Physical Exam
-
General: Well Developed, Well Nourished and Appears Chronically Ill
HEENT: Normocephalic, Atraumatic and Other (No active bleeding from nose/no post nasal drainage seen/no bleeding in mouth/no hematemesis)
Respiratory: Clear to Auscultation
Cardiac: Regular Rhythm, S1/S2 and Tachycardic
GI: Soft, Nontender and Nondistended
Musculoskeletal: Edema, Left Lower Extrem
Skin: Warm
Neuro: Awake, Alert, Oriented and AO x 3
[2024-06-13] MEDS: ADVAIR HFA 230/21 MCG INHALER 2 PUFF INH ×2 (07:24→19:06)
[2024-06-13] MEDS: SPIRIVA RESPIMAT 2.5 MCG 2 PUFF INH (07:24)
[2024-06-13] MEDS: ZETIA 10 MG PO (07:31)
[2024-06-13] MEDS: WELLBUTRIN XL (24 hour extended release) 300 MG PO (07:31)
[2024-06-13] MEDS: LAMICTAL 100 MG PO (07:31)
[2024-06-13] MEDS: DELTASONE 10 MG PO (07:31)
[2024-06-13] MEDS: PROTONIX 40 MG PO (07:31)
--- NOTE | 2024-06-13 08:40 | W.PN.INTV ---
Addendum entered and electronically signed by Herb Woodard MD 06/13/24 13:56:
Patient seen and examined independently by myself. Resident note reviewed below. Case, assessment and plan reviewed on rounds.
Patient is feeling improved overall. On 8 L, denies chest pain, lightheadedness, dizziness
Chest exam with minimal crackles at the base, otherwise no wheeze, good air exchange. Able to pull herself off, saturation 89%
Regular rate rhythm no murmurs rubs gallops
Abdominal exam soft nontender, no rebound
Data reviewed
Hemoglobin 11.4, platelets stable, creatinine 1.1
Doppler study with positive left lower extremity DVT, PTT therapeutic
A/P
At this time, patient appears to be slowly improving
Heparin is therapeutic
Oxygen weaned down to 8 L, sits up without assistance, maintain at 89%
Continue with heparin therapy for now for at least another 24 to 48 hours
Would not transition to oral regimen at this time
Would continue bedrest for another 24 hours given saddle embolus
If remains stable, consider sitting up at the bedside, simple exercises at the bedside with assistance in the next 24 to 48 hours
Patient is aware that she is high risk
Note prior discussion with interventional radiology, patient deemed high risk for catheter directed lytic therapy. May be amenable to thrombectomy catheter directed but this would also carry significant risk
Reviewed with critical care nursing, respiratory care, pharmacy
Reviewed with primary service
For transfer to IMU. We will continue to follow
Original Note:
Documented by User: Lesli Duarte DO, Resident 06/13/24 10:06
Today's Communication / Plan
Recommendations
Continue strict bedrest
Continue heparin therapy
Assessment
-
88-year-old female with past medical history of hypertension, hyperlipidemia, dyspnea and asthma who is currently being managed in the ICU for bilateral pulmonary embolism with saddle embolus, RV strain and elevated cardiac biomarkers.
Last 24 hours
� Admit to ICU
� Continue heparin therapy
� Placed on mid flow 6 L for hypoxia
� WBC 10.7, hemoglobin 11.4, platelets 146, sodium 139, potassium 4.2, BUN 20, creatinine 1.1
#Acute bilateral pulmonary embolism�saddle embolism
#Acute hypoxic respiratory insufficiency
#Elevated cardiac biomarkers
#Leukocytosis
#Acute renal insufficiency
#Hyperglycemia
#Potential history of asthma
#Hypertension
#Hyperlipidemia
#Hypothyroidism
#Former alcoholic
Plan/recommendations
Heparin therapy started in ED. Continue heparin.
Continue mid flow oxygen �O2 saturation 92 to 94%
Continue Guzman catheter
Continue strict bedrest
Continue conversation regarding goals of care
Continue cholesterol diet
Continue to hold doxazosin and metoprolol
Unlikely to proceed with catheter directed thrombolysis for saddle pulmonary embolism. Patient is very high risk and is currently improving clinically. Conversation had with IR and family.
Records have been requested from [facility] regarding recent hospital stay
ICU chemical plant manager will try to contact primary pulmonary physician�Dr. Godoy [phone]
Full code
Subjective Dataa
Subjective Data
Date of Service:
Date of Service: June 13, 2024
No acute events overnight. Patient states that she is feeling significantly better than yesterday. She continues to remain on 8 L mid flow which has been supporting her shortness of breath. She reports no headaches,
Chief Complaint: Pearl Fisherman Follow Up
Objective Data
Data Reviewed
Vital Signs / I&O / Oxygen:
Vital Signs
Temp Pulse Resp BP Pulse Ox
97.8 F 85 18 99/61 93
06/13/24 03:19 06/13/24 07:28 06/13/24 07:28 06/13/24 05:00 06/13/24 07:29
Intake and Output
06/12/24 06/13/24 06/14/24
06:59 06:59 06:59
Intake Total 756 / 826 1300 / 1300
Output Total 577 / 607 1425 / 1425
Balance 179 / 219 -125 / -125
SaO2 93
Nasal Cannula flow liters per 8
minute
Physical Exam
General: Comfortable
HEENT: Normocephalic and Anicteric
Cardiovascular: S1-S2 and Regular Rhythm
GI: Soft and Non Distended
Neurology: AO x 3
Skin: Warm and Dry
Labs/Micro/Reports
Lab Data
06/13/24 04:30
06/13/24 04:30
Laboratory Results
06/12/24 06/12/24 06/13/24
13:12 20:01 02:00
APTT 77.6 H 100.9 H Cancelled
06/13/24
04:30
APTT 133.0 H
Microbiology
06/11/24 11:25 Nasal Swab Influenza Types A & B (CLAUDE) - Final
Negative for Influenza A & B, NAAT
Negative results must be combined with clinical observations
and patient history.
Nucleic Acid Amplification test (NAAT)performed on the
[employer] platform.

Documented by User: Herb Woodard MD 06/13/24 13:54
Subjective Dataa
Subjective Data
Subjective:
Patient overall appears to be moving the right direction. She is less short of breath, weaned down to 8 L. She denies chest pain, pleurisy, lightheadedness, dizziness. Nursing record suggests mild pleurisy overnight but upon further questioning,
patient denies. She is able to pull herself up without difficulty. She denies any significant cough or hemoptysis
[2024-06-13] MEDS: HEPARIN 25000 UNITS/250 ML IV (08:47)
--- NOTE | 2024-06-13 11:18 | PTCARENOTE ---
cont on heparin gtt. strict bed rest maintained. patient turned and repositioned Q2H. O2 weaned down to 6L midflow. BM recorded this AM. IMU orders noted. family updated over the phone
[2024-06-13 12:27] LABS: APTT 48.9 Sec (23.4-35.0)
--- NOTE | 2024-06-13 13:18 | CM ---
CM following re: discharge planning.
Reviewed pt's chart, met with pt.
Per Rounds meeting, pt requires 8: midflow NC, continue supportive care.
asked to check the vaca for Eliquis 5mg BID. CM [facility] [phone] and the vaca as follow: 30 days supply - $47.00 and 90 days - $141.00 . pt is aware and she stated she will afford it. Free 30 day trial coupon
given.
PT and OT evaluation requested to determine a level of care at discharge.
Pt lives alone in a rented room in a 2SH with other people, 11 steps to enter, has 2 supportive children, ambulates with a cane when goes outside.
D/C plan: uncertain at this time. PT and OT will evaluate.
CM will follow with discharge plan updates as hospitalization progresses
[2024-06-13] MEDS: HEPARIN 8000 UNITS IV (14:12)
--- NOTE | 2024-06-13 14:21 | W.PN.UPDATE ---
Update Note
Progress Note Update
I saw and evaluated the patient. I reviewed the resident�s note and agree with findings and plan as documented in the resident�s note.
LE venous doppler
Examination is positive for deep venous thrombosis of the left lower extremity in this patient with known pulmonary embolism.
No evidence for deep venous thrombosis of the right lower extremity.
CT chest
Saddle pulmonary thromboembolism with large volume bilateral clot burden. Secondary CT findings most suggestive of right heart strain.
Bilateral ground-glass opacities may reflect mild pulmonary edema, hypoventilatory changes, and/or small airways disease.

1. Saddle PE/massive PE
DVT
Acute hypoxic respiratory failure
-CT chest PE showing saddle embolism with signs of RV strain
-Elevated troponin/proBNP level
-Echocardiogram showed elevated RV pressure.
-Pulmonology following and discussed with interventional radiology due to increased risk holding on catheter guided thrombolysis. Family in agreement
-If patient develops obstructive shock will require to be started on vasopressors. Limiting IVF with increased RV strain.
-Oxygen requirement coming down
-Continue heparin drip
-Limit mobility at this point
-Transfer to IMU
2. DONTRELL
-minimal cr elevation, improving
3. Depression/anxiety
-Continue bupropion/Lamictal home dose
4. Hypothyroidism
-Continue home dose of levothyroxine
5. Gastroesophageal reflux disease
-Maintain on lansoprazole
6. Essential hypertension
-Hold doxazosin/Toprol until blood pressure improved
7. Hyperlipidemia
-Maintain on ezetimibe
Full code
Total time spent : 55 mins
Transfer to IMU, discussed with pulmonology
--- NOTE | 2024-06-13 20:00 | PTCARENOTE ---
Received patient AAOx3, following commands, denying pain. [place] b/l. Sinus tach 100s, BP stable, normothermic. Palpable radial and pedal pulses b/l, trace b/l LE edema. 96% on 6 liters, crackles and diminished throughout. Occasional productive cough,
POLK, tachypneic, shallow. Abdomen soft, round, obese, positive bowel sounds. Loose BM on bedpan. Guzman in place draining yellow urine. PIVs patent, WNL. Repositioned, call ledesma within reach.
[2024-06-13 20:31] LABS: APTT 169.9 Sec (23.4-35.0)
[2024-06-13] MEDS: SINGULAIR 10 MG PO (21:24)
[2024-06-13] MEDS: MAGNESIUM OXIDE 500 MG PO (21:24)
[2024-06-13] MEDS: TYLENOL 650 MG PO (21:24)
[2024-06-13] MEDS: SEROQUEL 50 MG PO (21:24)
[2024-06-13] MEDS: VITAMIN B1 100 MG PO (21:24)
[2024-06-14] VITALS (24 sets, daily range): BP systolic 78–151; BP diastolic 54–111; PULSE 106–111; O2SAT 93; BMI 32.1
[2024-06-14 04:16] LABS: Hematocrit 33.8 % (37.0-47.0); Hemoglobin 11.3 g/dL (12.0-16.0); Mean Corp Hgb Conc. 33.4 g/dL (33.0-37.0); Mean Corpuscular Volume 92.9 fL (81.0-99.0); Mean Platelet Volume 10.9 fL (7.4-10.4); Platelet Count 154 10^3/uL (130-400); Red Blood Cell Count 3.64 10^6/uL (4.20-5.40); Red Cell Dist. Width 14.6 % (11.5-14.5); White Blood Cell Count 11.8 10^3/uL (4.8-10.8)
[2024-06-14 04:29] LABS: APTT 67.2 Sec (23.4-35.0)
[2024-06-14 04:44] LABS: ALT (SGPT) 13 U/L (0-35); AST (SGOT) 23 U/L (14-36); Alkaline Phosphatase 61 U/L (38-126); Blood Urea Nitrogen 20 mg/dl (7-17); Carbon Dioxide 27 mmol/L (22-30); Chloride 106 mmol/L (98-107); Estimated Creatinine Clearance 38 ml/min; Glucose 107 mg/dl (70-99); Potassium 4.4 mmol/L (3.5-5.1); Sodium 138 mmol/L (135-145); Total Bilirubin 0.9 mg/dl (0.2-1.3); Total Protein 5.3 g/dl (6.3-8.2); eGFR 48.63
[2024-06-14] MEDS: SYNTHROID 100 MCG PO (05:52)
--- NOTE | 2024-06-14 07:00 | W.PN.HOSP.TC ---
Today's Communication/Plan
-
- Started on low-dose Lopressor
- Cautious with IV fluids
- Wean oxygen as able to
Assessment / Plan
Assessment / Plan
The patient is 88-year-old female with past medical history of hypertension, hyperlipidemia, dyspnea and asthma who was brought to the emergency department with worsening shortness of breath. Her chest CT showed acute extensive PE with saddle
embolus for which she was admitted to the ICU. She was started on heparin drip protocol and has been on mid flow nasal cannula oxygen at 12 L. She has a close follow-up with ICU given RV strain and elevated troponin and ProBNP l levels. Patient
has improvement with her clinical condition and was transferred to IMU.
Problem list
Acute bilateral extensive pulmonary embolism
Acute hypoxic respiratory failure
Acute kidney injury
Elevated troponin levels
Leukocytosis
History of asthma
History of hypertension
History of hyperlipidemia
History of hypothyroidism
PLAN
# Acute bilateral extensive pulmonary embolism
-CT shows saddle embolism and findings most suggestive of right heart strain.
-Echo shows:Enlarged right ventricular size. Reduced right ventricular systolic function
-Patient hemodynamically stable -improvement with her breathing-not considered interventions for now due to high risk
-DC IV fluids -tolerating oral taking -cautious with IV fluids amount-
-IV Fluids can be considered with vasopressors if the patient develop obstructive shock
-Continue heparin drip protocol with a plan to switch DOAC-employment case manager involved
-Peripheral venous ultrasound: nonocclusive thrombus in the left mid and distal femoral vein, with occlusive thrombus within the left popliteal vein.
# Acute hypoxic respiratory failure
-History of asthma
-On supplemental oxygen via nasal cannula
-Saturating 90-92% with 6 L
-Wean supplemental Oxygen as able to
-Continue inhalers as needed
-Continue 10 mg of prednisone
# Acute kidney injury
-CR 1.1
-Improving
#Elevated troponin levels
-Nonischemic cardiac injury
-Likely secondary to PE
-Troponin levels trended down
-No need to track for now
#Essential HTN
-BP on the lower side
- hold Doxazosin
- hold CCB
- Started on low-dose beta-bere
#HLD
-Continue ezetimibe
#Hypothyroidism
-Continue levothyroxine
#Depression/Bipolar disorder
-Continue Bupropion/Lamictal/Seroquel
#DVT prophylaxis
-On heparin drip
#CODE STATUS: Full code
Anticipated Discharge: 24 - 48 hours
Subjective/Interval History
-
Date of Service: June 14, 2024
Patient reports improvement with her breathing. No acute events over the night.
Objective Data
-
Labs:
Laboratory Results
06/13/24 06/14/24 06/14/24
20:04 03:54 11:00
WBC 11.8 H
Hgb 11.3 L
Hct 33.8 L
Plt Count 154
APTT 169.9 H* 67.2 H Pending
Sodium 138
Potassium 4.4
Chloride 106
Carbon Dioxide 27
BUN 20 H
Creatinine 1.1 H
Glucose 107 H
Calcium 9.0
Total Bilirubin 0.9
AST 23
ALT 13
Alkaline Phosphatase 61
Vital Signs:
Vital Signs
Temp Pulse Resp BP Pulse Ox
98.2 F 91 24 118/70 96
06/14/24 03:08 06/14/24 06:00 06/14/24 06:00 06/14/24 06:00 06/14/24 06:00
I&O
06/13/24 06/14/24 06/15/24
06:59 06:59 06:59
Intake Total 1300 / 1307 495 / 495
Output Total 1425 / 1425 1070 / 1070
Balance -125 / -118 -575 / -575
Review of Systems
-
History Source: Patient
EENT: Reports No Symptoms Reported
Respiratory: Reports No Symptoms
Cardiac: Reports No Symptoms
Abdomen/GI: Reports No Symptoms
Genitourinary: Reports No Symptoms
Musculoskeletal: Reports Edema and Other (Generalized weakness)
Skin: Reports No Symptoms
Neuro: Reports No Symptoms
Physical Exam
-
General: Well Developed, Well Nourished, Comfortable and Appears Chronically Ill
HEENT: Normocephalic and Atraumatic
Respiratory: Clear to Auscultation
Cardiac: Regular Rhythm, S1/S2 and Tachycardic
GI: Soft, Nontender and Nondistended
Musculoskeletal: No Clubbing, No Cyanosis and Edema, Left Lower Extrem
Skin: Warm and Dry
Neuro: Awake, Alert, Oriented and AO x 3
Psych: Calm
[2024-06-14] MEDS: ADVAIR HFA 230/21 MCG INHALER 2 PUFF INH ×2 (07:48→19:24)
[2024-06-14] MEDS: SPIRIVA RESPIMAT 2.5 MCG 2 PUFF INH (07:48)
[2024-06-14] MEDS: DELTASONE 10 MG PO (08:51)
[2024-06-14] MEDS: ZETIA 10 MG PO (08:51)
[2024-06-14] MEDS: LAMICTAL 100 MG PO (08:51)
[2024-06-14] MEDS: PROTONIX 40 MG PO (08:51)
[2024-06-14] MEDS: WELLBUTRIN XL (24 hour extended release) 300 MG PO (08:51)
--- NOTE | 2024-06-14 10:50 | PTCARENOTE ---
Pt was rec'd from night RN at 0700, drowsy but arousable to voice. AOx3, [place], pleasant and cooperative. Pt has been weaned to 4L from 6 per night RN. Lungs CTA, pt noted with POLK, CUONG (with talking), tachypnea, however reports feeling 'better.'
Heparin gtt infusing -see worklist for doses/times. Meds administered in applesauce, swallowed whole with no s/s aspiration, oriented to plan of care for the day. Pt declines to get oob this am, wants to wait for PT to eval. Pt reluctant to let RN
remove blevins catheter, education provided, pt agrees to let RN remove when oob. Plan discussed with attending Dr. Yu, resident Dr. Gutierrez, Dr. Macedo (as pulm consult). Heparin gtt off at 10:[address] Macedo, transitioned to SQ Lovenox Q12,
first dose due at 11:45 am. Call ledesma in reach, breakfast tray ordered and consumed 100%. Safe environment maintained.
[2024-06-14] MEDS: LOVENOX 80 MG SC ×2 (11:52→22:19)
--- NOTE | 2024-06-14 12:12 | PTCARENOTE ---
Guzman catheter removed, pt now working with PT/OT. Assisted oob to chair with RW.
--- NOTE | 2024-06-14 14:38 | W.PN.UPDATE ---
Update Note
Progress Note Update
I saw and evaluated the patient. I reviewed the resident�s note and agree with findings and plan as documented in the resident�s note.
LE venous doppler
Examination is positive for deep venous thrombosis of the left lower extremity in this patient with known pulmonary embolism.
No evidence for deep venous thrombosis of the right lower extremity.
CT chest
Saddle pulmonary thromboembolism with large volume bilateral clot burden. Secondary CT findings most suggestive of right heart strain.
Bilateral ground-glass opacities may reflect mild pulmonary edema, hypoventilatory changes, and/or small airways disease.

1. Saddle PE/massive PE
DVT
Acute hypoxic respiratory failure
-CT chest PE showing saddle embolism with signs of RV strain
-Elevated troponin/proBNP level
-Echocardiogram showed elevated RV pressure.
-Pulmonology following and discussed with interventional radiology due to increased risk holding on catheter guided thrombolysis. Family in agreement
-If patient develops obstructive shock will require to be started on vasopressors. Limiting IVF with increased RV strain.
-Patient continued to feel better, oxygen requirement coming down
-Discussed with pulmonology and heparin drip being switched to Lovenox for now
-Physical therapy ordered with patient to do minimal activity as possible today. Any signs of discomfort/tachycardia patient to put on bedrest again
2. DONTRELL
-minimal cr elevation, improving
3. Depression/anxiety
-Continue bupropion/Lamictal home dose
4. Hypothyroidism
-Continue home dose of levothyroxine
5. Gastroesophageal reflux disease
-Maintain on lansoprazole
6. Essential hypertension
-Patient have some reflex tachycardia with Toprol required to be held as well as with underlying PE
-Start on Lopressor 12 and half milligram twice daily with holding parameter
7. Hyperlipidemia
-Maintain on ezetimibe
Full code
Continue IV level monitoring, case discussed with pulmonology.
--- NOTE | 2024-06-14 16:02 | W.PN.INTV ---
Today's Communication / Plan
Recommendations
-Start Lovenox, 80mg, every 12 hrs
-Discontinue heparin drip
-Likely transition to oral agents in the next 24 to 48 hours
-If any deterioration, will reconsult interventional radiology service for possible catheter directed therapies
Assessment
-
88-year-old female with past medical history of hypertension, hyperlipidemia, dyspnea and asthma who is currently being managed in the ICU for bilateral pulmonary embolism with saddle embolus, RV strain and elevated cardiac biomarkers.
#Acute bilateral pulmonary embolism�saddle embolism
-Hemodynamically stable, reports mild dyspnea while talking, borderline respiratory rate. Evidence of RV strain noted on echocardiogram.
-Switch heparin drip to Lovenox for another 24 to 48 hours
-If any clinical deterioration, will reconsult interventional radiology service for consideration of catheter directed therapies
#Acute hypoxic respiratory insufficiency. This is related to large pulmonary embolism
-Continue O2 support as needed
-Slowly improving clinically
Pulmonary team will continue to follow
Total time spent on this consultation/encounter _38___ minutes which includes review of history, physical exam, medications, laboratory data, personal review of imaging, extensive review of outpatient records, discussion with care team and
respiratory therapy.
Subjective Dataa
Subjective Data
Date of Service:
Date of Service: June 14, 2024
Chief Complaint: Veneer Gluer Follow Up
Subjective:
Patient comfortably lying in bed in no acute distress.
Review of Systems
Genitourinary: Other (All 14 systems reviewed and negative except as stated above in the history of present illness. Reports feeling mildly short of breath when she talks.)
Objective Data
Data Reviewed
Vital Signs / I&O / Oxygen:
Vital Signs
Temp Pulse Resp BP Pulse Ox
98.0 F 104 27 129/80 94
06/14/24 15:46 06/14/24 13:01 06/14/24 13:01 06/14/24 13:01 06/14/24 13:01
Intake and Output
06/13/24 06/14/24 06/15/24
06:59 06:59 06:59
Intake Total 1300 / 1307 495 / 505 380 / 380
Output Total 1425 / 1425 1070 / 1120 355 / 355
Balance -125 / -118 -575 / -615
SaO2 94
Nasal Cannula flow liters per 4
minute
Physical Exam
General: Comfortable
HEENT: Normocephalic and Anicteric
Cardiovascular: S1-S2 and Regular Rhythm
Respiratory: Non-Labored Respirations
GI: Soft and Non Distended
Neurology: AO x 3
Skin: Warm and Dry
Labs/Micro/Reports
Lab Data
06/14/24 03:54
06/14/24 03:54
Laboratory Results
06/13/24 06/14/24
20:04 03:54
APTT 169.9 H* 67.2 H
Microbiology
06/13/24 12:04 Nose MRSA Screen - Final
No Methicillin Resistant Staphylococcus aureus isolated.
[2024-06-14] MEDS: LOPRESSOR 12.5 MG PO (16:38)
--- NOTE | 2024-06-14 21:53 | PTCARENOTE ---
Addendum entered by Erika Samuels RN 06/14/24 22:30:
Cannot verify vitals prior to 1900, previous shift.
Original Note:
Received patient AAOx3, following commands, denying pain. [place] b/l. Normal sinus/sinus tach 90s-100s BP stable, normothermic. Palpable radial and pedal pulses b/l. 94% on 4 liters, crackles and diminished throughout. Occasional productive cough, POLK,
shallow. Abdomen soft, round, obese, positive bowel sounds. Bedside commode to void. PIVs patent, WNL. Repositioned, call ledesma within reach.
[2024-06-14] MEDS: MAGNESIUM OXIDE 500 MG PO (22:19)
[2024-06-14] MEDS: VITAMIN B1 100 MG PO (22:19)
[2024-06-14] MEDS: SEROQUEL 50 MG PO (22:19)
[2024-06-14] MEDS: SINGULAIR 10 MG PO (22:19)
[2024-06-15] VITALS (13 sets, daily range): BP systolic 105–135; BP diastolic 55–81; BMI 32.0
[2024-06-15 04:51] LABS: Hematocrit 34.6 % (37.0-47.0); Hemoglobin 11.4 g/dL (12.0-16.0); Mean Corp Hgb Conc. 32.9 g/dL (33.0-37.0); Mean Corpuscular Hgb 31.2 pg (27.0-31.0); Mean Corpuscular Volume 94.8 fL (81.0-99.0); Mean Platelet Volume 10.8 fL (7.4-10.4); Platelet Count 164 10^3/uL (130-400); Red Blood Cell Count 3.65 10^6/uL (4.20-5.40); Red Cell Dist. Width 14.6 % (11.5-14.5); White Blood Cell Count 11.9 10^3/uL (4.8-10.8)
[2024-06-15 05:00] LABS: APTT 47.9 Sec (23.4-35.0)
[2024-06-15 05:27] LABS: ALT (SGPT) 12 U/L (0-35); AST (SGOT) 18 U/L (14-36); Alkaline Phosphatase 70 U/L (38-126); Blood Urea Nitrogen 20 mg/dl (7-17); Calcium 9.1 mg/dl (8.4-10.2); Carbon Dioxide 30 mmol/L (22-30); Chloride 103 mmol/L (98-107); Estimated Creatinine Clearance 38 ml/min; Glucose 89 mg/dl (70-99); Potassium 4.2 mmol/L (3.5-5.1); Sodium 138 mmol/L (135-145); Total Bilirubin 0.9 mg/dl (0.2-1.3); Total Protein 5.3 g/dl (6.3-8.2); eGFR 48.63
[2024-06-15] MEDS: SYNTHROID 100 MCG PO (05:40)
--- NOTE | 2024-06-15 07:08 | W.PN.HOSP.TC ---
Today's Communication/Plan
-
- Weaned from supplemental oxygen as able to
- Continue Lovenox with a plan to switch DOAC
- Continue low-dose beta-bere and monitor telemetry
Assessment / Plan
Assessment / Plan
The patient is 88-year-old female with past medical history of hypertension, hyperlipidemia, dyspnea and asthma who was brought to the emergency department with worsening shortness of breath. Her chest CT showed acute extensive PE with saddle
embolus for which she was admitted to the ICU. She was started on heparin drip protocol and has been on mid flow nasal cannula oxygen at 12 L. She has a close follow-up with ICU given RV strain and elevated troponin and ProBNP l levels. Patient
has improvement with her clinical condition and was transferred to telemetry from IMU.
Problem list
Acute bilateral extensive pulmonary embolism
Acute hypoxic respiratory failure
Acute kidney injury
Elevated troponin levels
Leukocytosis
History of asthma
History of hypertension
History of hyperlipidemia
History of hypothyroidism
PLAN
# Acute bilateral extensive pulmonary embolism
-CT shows saddle embolism and findings most suggestive of right heart strain.
-Echo shows:Enlarged right ventricular size. Reduced right ventricular systolic function
-Patient hemodynamically stable -improvement with her breathing-not considered interventions for now due to high risk
-DC IV fluids -tolerating oral taking -cautious with IV fluids amount-
-IV Fluids can be considered with vasopressors if the patient develop obstructive shock
-Continue Lovenox, 80mg, every 12 hrs with a plan to switch DOAC-supervisor case loading involved
-Peripheral venous ultrasound: nonocclusive thrombus in the left mid and distal femoral vein, with occlusive thrombus within the left popliteal vein.
# Acute hypoxic respiratory failure
-History of asthma
-On supplemental oxygen via nasal cannula
-Saturating 90-96% with 4 L
-Wean supplemental Oxygen as able to
-Continue inhalers as needed
-Continue 10 mg of prednisone
# Acute kidney injury
-CR 1.1
-Improving
#Elevated troponin levels
-Nonischemic cardiac injury
-Likely secondary to PE
-Troponin levels trended down
-No need to track for now
#Essential HTN
-BP on the lower side
- hold Doxazosin
- hold CCB
- Continue on low-dose beta-bere to address mostly her tachycardia with holding parameters
#HLD
-Continue ezetimibe
#Hypothyroidism
-Continue levothyroxine
#Depression/Bipolar disorder
-Continue Bupropion/Lamictal/Seroquel
#DVT prophylaxis
-O Lovenox
#CODE STATUS: Full code
Anticipated Discharge: 24 - 48 hours
Subjective/Interval History
-
Date of Service: June 15, 2024
Patient reports feeling better. No events overnight.
Objective Data
-
Labs:
Laboratory Results
06/15/24
04:24
WBC 11.9 H
Hgb 11.4 L
Hct 34.6 L
Plt Count 164
APTT 47.9 H
Sodium 138
Potassium 4.2
Chloride 103
Carbon Dioxide 30
BUN 20 H
Creatinine 1.1 H
Glucose 89
Calcium 9.1
Total Bilirubin 0.9
AST 18
ALT 12
Alkaline Phosphatase 70
Vital Signs:
Vital Signs
Temp Pulse Resp BP Pulse Ox
97.6 F 89 22 115/63 95
06/15/24 03:16 06/15/24 06:00 06/15/24 06:00 06/15/24 06:00 06/15/24 06:00
I&O
06/14/24 06/15/24 06/16/24
06:59 06:59 06:59
Intake Total 495 / 505 620 / 620
Output Total 1070 / 1120 780 / 780
Balance -575 / -615 -160 / -160
Review of Systems
-
History Source: Patient
EENT: Reports No Symptoms Reported
Respiratory: Reports No Symptoms
Cardiac: Reports No Symptoms
Abdomen/GI: Reports No Symptoms
Genitourinary: Reports No Symptoms
Musculoskeletal: Reports Other (Generalized weakness)
Skin: Reports No Symptoms
Neuro: Reports No Symptoms
Physical Exam
-
General: Well Developed, Well Nourished, Comfortable and Appears Chronically Ill
HEENT: Normocephalic and Atraumatic
Respiratory: Clear to Auscultation
Cardiac: Regular Rhythm, S1/S2 and Tachycardic
GI: Soft, Nontender and Nondistended
Musculoskeletal: No Clubbing, No Cyanosis and Edema, Left Lower Extrem
Skin: Warm and Dry
Neuro: Awake, Alert, Oriented and AO x 3
Psych: Calm
[2024-06-15] MEDS: SPIRIVA RESPIMAT 2.5 MCG 2 PUFF INH (07:44)
[2024-06-15] MEDS: ADVAIR HFA 230/21 MCG INHALER 2 PUFF INH ×2 (07:44→19:45)
[2024-06-15] MEDS: PROTONIX 40 MG PO (09:02)
[2024-06-15] MEDS: LAMICTAL 100 MG PO (09:02)
[2024-06-15] MEDS: WELLBUTRIN XL (24 hour extended release) 300 MG PO (09:02)
[2024-06-15] MEDS: ZETIA 10 MG PO (09:02)
[2024-06-15] MEDS: DELTASONE 10 MG PO (09:02)
[2024-06-15] MEDS: ELIQUIS 10 MG PO ×2 (09:02→19:58)
--- NOTE | 2024-06-15 12:48 | PTCARENOTE ---
Pt reports more dyspnea with talking, feeling slightly more SOB. Sa02 low 90s. Pt repositioned higher in bed, sats up to mid 90s. Continuing to closely monitor, will keep bedrest at this time and hold off on getting oob to chair.
--- NOTE | 2024-06-15 14:46 | W.PN.PUL3 ---
Today's Communication / Plan
-
-DC Lovenox
-Start Eliquis 10 mg twice daily
-Pulm team will follow
Assessment
-
88-year-old female with past medical history of hypertension, hyperlipidemia, dyspnea and asthma who is currently being managed in the ICU for bilateral pulmonary embolism with saddle embolus, RV strain and elevated cardiac biomarkers. Patient was
started on IV heparin. She was evaluated by interventional radiology as well as on-call pulmonary service and was felt to be too high risk for catheter directed therapies.
#1. Acute bilateral pulmonary embolism�saddle embolism, with RV strain.
-Hemodynamically stable, improving dyspnea, saturating well on 4 L supplemental oxygen. Evidence of RV strain noted on echocardiogram.
-Discontinue Lovenox, start Eliquis 10 mg twice daily for 7 days followed by 5 mg twice daily depending on patient's creatinine
-If any clinical deterioration, will reconsult interventional radiology service for consideration of catheter directed therapies
#Acute hypoxic respiratory insufficiency. This is related to large pulmonary embolism
-Continue O2 support as needed, at 4 L now
-Slowly improving clinically
Pulmonary team will continue to follow
Total time spent on this consultation/encounter _32___ minutes which includes review of history, physical exam, medications, laboratory data, personal review of imaging, extensive review of outpatient records, discussion with care team and
respiratory therapy.
Subjective Data
-
Date of Service:
Date of Service: June 14, 2024
Subjective:
Patient lying in bed, comfortably no acute distress. Currently on 4 L supplemental oxygen
Review of Systems
Genitourinary: Other (All 14 systems reviewed and negative except as stated above in the history of present illness.)
Objective Data
Data Reviewed
Vital Signs / I&O / Oxygen:
Vital Signs
Temp Pulse Resp BP Pulse Ox
98.0 F 104 27 129/80 94
06/14/24 15:46 06/14/24 13:01 06/14/24 13:01 06/14/24 13:01 06/14/24 13:01
Intake and Output
06/13/24 06/14/24 06/15/24
06:59 06:59 06:59
Intake Total 1300 / 1307 495 / 505 380 / 380
Output Total 1425 / 1425 1070 / 1120 355 / 355
Balance -125 / -118 -575 / -615
SaO2 94
Nasal Cannula flow liters per 4
minute
Physical Exam
General: Comfortable
HEENT: Normocephalic
Cardiovascular: S1-S2
Respiratory: Clear and Non-Labored Respirations
GI: Soft and Non Distended
Neurology: Awake and Alert
Skin: Warm
Labs/Micro/Reports
Lab Data
06/14/24 03:54
06/14/24 03:54
Laboratory Results
06/13/24 06/14/24
20:04 03:54
APTT 169.9 H* 67.2 H
Microbiology
06/13/24 12:04 Nose MRSA Screen - Final
No Methicillin Resistant Staphylococcus aureus isolated.
--- NOTE | 2024-06-15 19:45 | PTCARENOTE ---
Patient received sitting up in bed, awake, alert and oriented watching TV. She is without apparent signs of distress or discomfort. She is [place]. She denies CP or pain. However, she c/o feeling a little more SOB compared to yesterday. Her sats are 94%
on 4L/nc. She is using IS, DB&C. BBS with fine crackles scattered t/o except LIYA clear. Bases diminished. S1S2 tachy. ST on CM with 1st degree AVB. Positive pulses x 4 extremities, trace BLE edema. Abdomen soft and nontender. Takes po medication
without difficutly. Bed in low and locked position, call ledesma within reach.
--- NOTE | 2024-06-15 21:00 | PTCARENOTE ---
Purewick changed. Perineal care, partial bath and partial linen change. Brushed teeth. Readied for bed, room darkened.
[2024-06-15] MEDS: MAGNESIUM OXIDE 500 MG PO (21:46)
[2024-06-15] MEDS: SEROQUEL 50 MG PO (21:46)
[2024-06-15] MEDS: VITAMIN B1 100 MG PO (21:47)
[2024-06-15] MEDS: SINGULAIR 10 MG PO (21:47)
[2024-06-16] VITALS (13 sets, daily range): BP systolic 106–141; BP diastolic 60–81; PULSE 100–103; O2SAT 86–95; BMI 31.7
[2024-06-16 04:42] LABS: Hemoglobin 12.1 g/dL (12.0-16.0); Mean Corp Hgb Conc. 33.6 g/dL (33.0-37.0); Mean Corpuscular Hgb 31.8 pg (27.0-31.0); Mean Corpuscular Volume 94.5 fL (81.0-99.0); Mean Platelet Volume 10.7 fL (7.4-10.4); Platelet Count 180 10^3/uL (130-400); Red Blood Cell Count 3.81 10^6/uL (4.20-5.40); Red Cell Dist. Width 14.6 % (11.5-14.5); White Blood Cell Count 12.3 10^3/uL (4.8-10.8)
[2024-06-16 04:54] LABS: ALT (SGPT) 14 U/L (0-35); AST (SGOT) 21 U/L (14-36); Albumin 3.4 g/dl (3.5-5.0); Alkaline Phosphatase 74 U/L (38-126); Blood Urea Nitrogen 23 mg/dl (7-17); Calcium 9.3 mg/dl (8.4-10.2); Carbon Dioxide 30 mmol/L (22-30); Chloride 103 mmol/L (98-107); Estimated Creatinine Clearance 38 ml/min; Glucose 93 mg/dl (70-99); Potassium 4.3 mmol/L (3.5-5.1); Sodium 139 mmol/L (135-145); Total Bilirubin 0.8 mg/dl (0.2-1.3); Total Protein 5.7 g/dl (6.3-8.2); eGFR 48.63
[2024-06-16] MEDS: SYNTHROID 100 MCG PO (06:09)
--- NOTE | 2024-06-16 07:14 | PTCARENOTE ---
Report given verbally to oncKeely logan RN. Questions answered.
[2024-06-16] MEDS: ADVAIR HFA 230/21 MCG INHALER 2 PUFF INH ×2 (07:37→20:20)
[2024-06-16] MEDS: SPIRIVA RESPIMAT 2.5 MCG 2 PUFF INH (07:38)
[2024-06-16] MEDS: PROTONIX 40 MG PO (09:06)
[2024-06-16] MEDS: DELTASONE 10 MG PO (09:06)
[2024-06-16] MEDS: ZETIA 10 MG PO (09:06)
[2024-06-16] MEDS: WELLBUTRIN XL (24 hour extended release) 300 MG PO (09:06)
[2024-06-16] MEDS: ELIQUIS 10 MG PO ×2 (09:06→20:52)
[2024-06-16] MEDS: LAMICTAL 100 MG PO (09:06)
--- NOTE | 2024-06-16 09:14 | W.PN.HOSP.TC ---
Addendum entered and electronically signed by Roby Strickland MD 06/16/24 22:18:
Attending Addendum-
I saw and evaluated the patient. I reviewed the resident�s note and agree with findings and plan as documented in the resident�s note. Sub: complains of cough. Denies CP palps hemoptysis. Full 12 point ROS reviewed and negative except as documented
Exam: Vitals reviewed in chart GEN-NAD heart tachycardic lungs decreased at bases B/L scatered mild exp wheeze abd soft LE left>right pulses intact
Plan:
# Saddle PE
Left LE DVT
Acute hypoxic respiratory failure
-CT chest PE showing saddle embolism with signs of RV strain
-Elevated troponin/proBNP level
-Echocardiogram showed elevated RV pressure.
-Pulmonology following and discussed with interventional radiology due to increased risk holding on catheter guided thrombolysis. Family in agreement
-Supplemental Oxygen requirement decreasing- will need to DC on o2-NEW
-Patient has been transitioned to oral Eliquis load x 7 days then maintenance dose x 6 months
-PT OT->SNF
#NIMI
-trop peaked
-from PE
# Apparent AE asthma
-dx at outside hospital
-cont spiriva
-cont pred taper
# Leukocytosis
- from steroids
- cbc in am
# DONTRELL
-minimal cr elevation, improving
# Depression/anxiety
-Continue bupropion
# Bipolar D/O
- cont Seroquel and Lamictal
# Hypothyroidism
-Continue home dose of levothyroxine
# Gastroesophageal reflux disease
-Maintain on lansoprazole
# Essential hypertension
-restart toplol XL 25mg PO BID
-verapamil and doxazosin on hold
# Hyperlipidemia
-Maintain on ezetimibe
Full code
Transfer to telemetry
Dispo DC to [facility] in [place] in am
Time spent coordinating care, review of plan of care with resident, personally reviewed records in EMR, med rec, consults, notes, labs, radiology, d/w nursing � 53 mins
Original Note:
Today's Communication/Plan
-
Continue Eliquis
Continue metoprolol 25mg BID
DC planning
Assessment / Plan
Assessment / Plan
88-year-old female with hx of hypertension, hyperlipidemia, hypothyroidism, asthma, who presents with saddle PE with right heart strain, and LLE DVT.
PLAN
# Acute bilateral extensive pulmonary embolism:
# LLE DVT
CT shows saddle embolism and findings most suggestive of right heart strain. Echo confirmed enlarged right ventricular size. Reduced right ventricular systolic function. LE US showed nonocclusive thrombus in the left mid and distal femoral vein,
with occlusive thrombus within the left popliteal vein.
- Converted from lovenox to DOAC on 06/15. Continue Eliquis 10mg BID through 06/21, and switch to maintenance
#Acute hypoxic respiratory failure
Secondary to PE.
Was on 12L midflow NC on arrival. Currently 94% on 3L. Will wean as tolerated
-Continue inhalers as needed
#Elevated creatine
unclear baseline
-CR 1.1
-Improving
#Nonischemic cardiac injury
Elevated troponin
Secondary to PE. troponin peaked at 0.112 with downtrend
#Asthma:
No evidence of acute exacerbation. Recent hospitalization at [facility] for asthma exacerbation
On steroid therapy with outpatient pulm follow up. Was not discharged on home O2 after asthma exacerbation
-Continue prednisone 10mg
-Continue home montelukast, Spiriva, Advair
#Essential HTN
BP stable
-Continue Metoprolol succinate at home dose 25mg BID
- Continue holding CCB and doxazosin and monitor BP
#HLD
-Continue ezetimibe
#Hypothyroidism
-Continue levothyroxine
#Depression/Bipolar disorder
-Continue Bupropion/Lamictal/Seroquel
#DVT prophylaxis
- On DVT/PE therapeutic dose Eliquis
#CODE STATUS: Full code
Anticipated Discharge: Within 24 hours
Subjective/Interval History
-
Date of Service: June 16, 2024
No acute overnight events
Objective Data
-
Labs:
Laboratory Results
06/16/24
04:21
WBC 12.3 H
Hgb 12.1
Hct 36.0 L
Plt Count 180
Sodium 139
Potassium 4.3
Chloride 103
Carbon Dioxide 30
BUN 23 H
Creatinine 1.1 H
Glucose 93
Calcium 9.3
Total Bilirubin 0.8
AST 21
ALT 14
Alkaline Phosphatase 74
Vital Signs:
Vital Signs
Temp Pulse Resp BP Pulse Ox
98.1 F 101 20 121/65 95
06/16/24 07:26 06/16/24 07:45 06/16/24 07:45 06/16/24 06:00 06/16/24 07:45
I&O
06/15/24 06/16/24 06/17/24
06:59 06:59 06:59
Intake Total 620 / 620 475 / 475
Output Total 780 / 780 1300 / 1300
Balance -160 / -160 -825 / -825
Review of Systems
-
History Source: Patient
Respiratory: Reports Cough, Trouble Breathing and Pleurisy
Cardiac: Denies Chest Pain or Palpitations
Abdomen/GI: Denies Abdominal Pain, Nausea or Vomiting
Physical Exam
-
General: Well Developed
HEENT: Normocephalic, Atraumatic and Moist Mucous Membranes
Respiratory: Clear to Auscultation and Other (respiratory distress); Negative Wheezes or Crackles
Cardiac: Regular Rhythm and S1/S2; Negative Murmur, Rub or Calf Tenderness
GI: Soft, Nontender and Nondistended
Genito-urinary: No Costovertebral Tender
Skin: Warm and Dry
Neuro: Awake, Alert and Oriented
Psych: Calm
[2024-06-16] MEDS: MIRALAX 17 GRAMS PO (09:33)
--- NOTE | 2024-06-16 14:20 | CM ---
Addendum entered by Elder Carcamo 06/16/24 15:03:
According to pt possible will be ready for discharge tomorrow.
CM initiated an auth from [facility], , a case is started and was transferred to [facility] that manages subacute/SNF authorizations [phone], spoke to employer relations representative Kyle, pending auth: [id number]. Pt's clinical will be faxed
today after updated PT/OT evaluations to provided fax number: [phone].
Awaiting for an auth from [facility].
D/C plan: [facility] Subacute rehab: [facility] [place] [id number]. Awaiting for an auth.
Original Note:
CM following re: discharge planning.
Reviewed pt's chart, met with pt.
Per Rounds meeting, pt requires 4L NC, continue supportive care.
PT and OT evaluations noted - SNF level of care recommended. Pt is aware and she stated she was [facility] at [facility], liked there very much and she is requested [facility] (new name [facility]
[employer] [phone]).
A referral to [facility] made, pt is accepted for admission when medically stable. Pt will need an auth from [facility] [id number]
[facility] REM[facility]IOS
Accepting physician: Derrick Sanchez
D/C plan: [facility] SNF
CM will follow to assist pt with discharge to [facility]
--- NOTE | 2024-06-16 14:33 | PTCARENOTE ---
ambulated to bathroom. sat 86 with activity. increased to 6 liters, patient recovered at rest. oxygen decreased to 3 liters pulse oximeter 95. call ledesma in reach
--- NOTE | 2024-06-16 15:32 | W.PN.PUL3 ---
Today's Communication / Plan
-
-Continue Eliquis, renal dosing
-Needs long-term anticoagulation
-Pulmonary team will sign off, please call as needed
-Outpatient follow-up with pulmonary clinic
Assessment
-
88-year-old female with past medical history of hypertension, hyperlipidemia, dyspnea and asthma who is currently being managed in the ICU for bilateral pulmonary embolism with saddle embolus, RV strain and elevated cardiac biomarkers. Patient was
started on IV heparin. She was evaluated by interventional radiology as well as on-call pulmonary service and was felt to be too high risk for catheter directed therapies.
#1. Acute bilateral pulmonary embolism�saddle embolism, with RV strain.
-Hemodynamically stable, improving dyspnea, saturating well on 4 L supplemental oxygen. Evidence of RV strain noted on echocardiogram.
-Discontinued Lovenox, started Eliquis 10 mg twice daily for 7 days followed by 5 mg twice daily depending on patient's creatinine
-If any clinical deterioration, will reconsult interventional radiology service for consideration of catheter directed therapies
#Acute hypoxic respiratory insufficiency. This is related to large pulmonary embolism
-Continue O2 support as needed, at 4 L now
-Slowly improving clinically
Pulmonary team will continue to follow
Total time spent on this consultation/encounter _32___ minutes which includes review of history, physical exam, medications, laboratory data, personal review of imaging, extensive review of outpatient records, discussion with care team and
respiratory therapy.
Subjective Data
-
Date of Service:
Date of Service: June 16, 2024
Subjective:
Patient comfortably sitting in bed in no acute distress.
Objective Data
Data Reviewed
Vital Signs / I&O / Oxygen:
Vital Signs
Temp Pulse Resp BP Pulse Ox
98.9 F 108 26 133/81 95
06/16/24 15:16 06/16/24 14:00 06/16/24 14:00 06/16/24 12:21 06/16/24 14:00
Intake and Output
06/15/24 06/16/24 06/17/24
06:59 06:59 06:59
Intake Total 620 / 620 475 / 475 720 / 720
Output Total 780 / 780 1300 / 1300
Balance -160 / -160 -825 / -825 720 / 720
SaO2 95
Nasal Cannula flow liters per 3
minute
Physical Exam
General: Comfortable
HEENT: Normocephalic
Cardiovascular: S1-S2
Respiratory: Clear and Non-Labored Respirations
GI: Soft and Non Distended
Neurology: Awake and Alert
Skin: Warm
Labs/Micro/Reports
Lab Data
06/16/24 04:21
06/16/24 04:21
Microbiology
06/13/24 12:04 Nose MRSA Screen - Final
No Methicillin Resistant Staphylococcus aureus isolated.
[2024-06-16] MEDS: SINGULAIR 10 MG PO (20:51)
[2024-06-16] MEDS: MAGNESIUM OXIDE 500 MG PO (20:51)
[2024-06-16] MEDS: SEROQUEL 50 MG PO (20:51)
[2024-06-16] MEDS: TOPROL XL 25 MG PO (20:51)
[2024-06-16] MEDS: VITAMIN B1 100 MG PO (20:54)
--- NOTE | 2024-06-16 23:46 | PTCARENOTE ---
Pt received from previous shift in bed. AAOx3, pleasant, very [place], forgetful to details. Telemetry = ST/BBC. Full physical assessment documented (refer to worklist). POLK, pursed lip breathing at times, occ non prod cough. Meds given whole in
applesauce. Purewick external catheter maintained. #20 RW and #18 RFA PIV patent. Assisted w/HS care. Call baltazar w/in reach, bed alarm active for safety.
[2024-06-17] VITALS (7 sets, daily range): BP systolic 104–136; BP diastolic 58–91; BMI 31.2
[2024-06-17 04:18] LABS: Hematocrit 35.3 % (37.0-47.0); Hemoglobin 11.7 g/dL (12.0-16.0); Mean Corp Hgb Conc. 33.1 g/dL (33.0-37.0); Mean Corpuscular Hgb 31.3 pg (27.0-31.0); Mean Corpuscular Volume 94.4 fL (81.0-99.0); Mean Platelet Volume 10.6 fL (7.4-10.4); Platelet Count 210 10^3/uL (130-400); Red Blood Cell Count 3.74 10^6/uL (4.20-5.40); Red Cell Dist. Width 14.7 % (11.5-14.5); White Blood Cell Count 12.3 10^3/uL (4.8-10.8)
[2024-06-17 04:48] LABS: ALT (SGPT) 19 U/L (0-35); AST (SGOT) 29 U/L (14-36); Albumin 3.3 g/dl (3.5-5.0); Alkaline Phosphatase 72 U/L (38-126); Blood Urea Nitrogen 31 mg/dl (7-17); Calcium 9.2 mg/dl (8.4-10.2); Carbon Dioxide 30 mmol/L (22-30); Chloride 102 mmol/L (98-107); Estimated Creatinine Clearance 38 ml/min; Glucose 94 mg/dl (70-99); Potassium 4.6 mmol/L (3.5-5.1); Sodium 139 mmol/L (135-145); Total Bilirubin 0.8 mg/dl (0.2-1.3); Total Protein 5.7 g/dl (6.3-8.2); eGFR 48.63
[2024-06-17] MEDS: SYNTHROID 100 MCG PO (05:03)
[2024-06-17] MEDS: ADVAIR HFA 230/21 MCG INHALER 2 PUFF INH (07:36)
[2024-06-17] MEDS: SPIRIVA RESPIMAT 2.5 MCG 2 PUFF INH (07:37)
[2024-06-17] MEDS: ELIQUIS 10 MG PO (08:37)
[2024-06-17] MEDS: DELTASONE 10 MG PO (08:37)
[2024-06-17] MEDS: PROTONIX 40 MG PO (08:37)
[2024-06-17] MEDS: TOPROL XL 25 MG PO (08:37)
[2024-06-17] MEDS: WELLBUTRIN XL (24 hour extended release) 300 MG PO (08:37)
[2024-06-17] MEDS: LAMICTAL 100 MG PO (08:38)
[2024-06-17] MEDS: ZETIA 10 MG PO (08:38)
--- NOTE | 2024-06-17 09:14 | PTCARENOTE ---
report received, assessments per work list. assisted oob to chair, oxygen increased to 6 liters with exertion. lungs with basilar crackles, tubular breath sounds. purewick in place. pungent cloudy urine, otherwise incontinent. call ledesma inreach
--- NOTE | 2024-06-17 13:39 | CM ---
CM following re: discharge planning.
Reviewed pt's chart, met with pt and spoke to pt's daughter over the phone to update on pt's discharge plan progress. Pt's daughter is requested to talk to MD. MD has been notified.
According to MD pt is medically stable to be discharged today. Pt is aware, expressed her agreement. IMM reviewed, placed on chart, pt has a copy.
KAVYA spoke to [employer] and was notified that pt is approved for subacute level of care at [facility] from today 06/17/24 till 06/22/24 with LCD and NRD 06/22/24. Auth is [id number].
CM called [facility] and was informed they do not have a bed available and asked to switch an auth to [facility], . Address: [address] [place] [address]
KAVYA called [email or web address] and a new auth for [facility] obtained: [id number] with the same days.
KAVYA spoke to events director [facility] [phone] and she confirmed that pt is accepted for admission today.
to arrange transportation BLS. [facility] completed, left with
[facility] nursing report: [phone]
Discharge instructions fax: [phone]
D/C plan: [facility].
--- NOTE | 2024-06-17 14:26 | W.PN.HOSP.TC ---
Addendum entered and electronically signed by Roby Strickland MD 06/17/24 23:05:
Attending Addendum-
I saw and evaluated the patient. I reviewed the resident�s note and agree with findings and plan as documented in the resident�s note. Sub: 'Im ready to go' Still with SOB but greatly improved Denies CP palps hemoptysis. Full 12 point ROS reviewed
and negative except as documented Exam: Vitals reviewed in chart GEN-NAD heart tachycardic lungs decreased at bases abd soft LE left>right pulses intact
Plan:
# Saddle PE
Left LE DVT
Acute hypoxic respiratory failure
-CT chest PE showing saddle embolism with signs of RV strain
-Elevated troponin/proBNP level
-Echocardiogram showed elevated RV pressure.
-Pulmonology following and discussed with interventional radiology due to increased risk holding on catheter guided thrombolysis. Family in agreement
-Supplemental Oxygen requirement decreasing- will need to DC on o2-NEW
-Patient has been transitioned to oral Eliquis load x 7 days then maintenance dose x 6 months
-PT OT->SNF
#NIMI
-trop peaked
-from PE
# Apparent AE asthma
-dx at outside hospital
-cont spiriva
-cont pred taper
# Leukocytosis
- from steroids
- cbc as OP
# DONTRELL
-minimal cr elevation, improving
# Depression/anxiety
-Continue bupropion
# Bipolar D/O
- cont Seroquel and Lamictal
# Hypothyroidism
-Continue home dose of levothyroxine
# Gastroesophageal reflux disease
-Maintain on lansoprazole
# Essential hypertension
-restart Toprol XL 25mg PO BID
-verapamil and doxazosin on hold
# Hyperlipidemia
-Maintain on ezetimibe
Full code
Transfer to telemetry
Dispo DC to SNF in [place]
Time spent coordinating care, DC planning, review of DC plan of care with resident, transition of care, review of records, med rec/scripts sent electronically, consults, notes, d/w consultants, nursing, family, and CM� 32 mins
Original Note:
Today's Communication/Plan
-
DC to SNF
Assessment / Plan
Assessment / Plan
88-year-old female with hx of hypertension, hyperlipidemia, hypothyroidism, asthma, who presents with saddle PE with right heart strain, and LLE DVT.
PLAN
# Acute saddle pulmonary embolism, with right heart strain
# LLE DVT
CT shows saddle embolism and findings most suggestive of right heart strain. Echo confirmed enlarged right ventricular size. Reduced right ventricular systolic function. LE US showed nonocclusive thrombus in the left mid and distal femoral vein,
with occlusive thrombus within the left popliteal vein.
- Converted from lovenox to DOAC on 06/15. Continue Eliquis 10mg BID through 06/21, and switch to 5mg BID for 6 months
- Okay to discharge to SNF. Discussed with daughter over the phone who is in agreement with DC and plan for outpt pulm follow up with [facility]
#Acute hypoxic respiratory failure
Secondary to PE
Currently 96% on 3L. Will wean as tolerated
-Continue inhalers as needed
#Elevated creatine
unclear baseline
-CR 1.1
-Improving
#Nonischemic cardiac injury
Elevated troponin
Secondary to PE. troponin peaked at 0.112 with downtrend
#Asthma:
Recent hospitalization at [facility] for asthma exacerbation. Appears to be resolved/controlled
On prednisone 10mg daily. Was not discharged on home O2 after asthma exacerbation
-Continue prednisone for 4 days upon discharge. Follow up with Pulm outpatient per pulm recs
-Continue home montelukast, Spiriva, Advair
#Essential HTN
BP stable
-Continue Metoprolol succinate at home dose 25mg BID
-Continue holding CCB and doxazosin upon discharge given stable pressures, until follow up with PCP
#HLD
-Continue ezetimibe
#Hypothyroidism
-Continue levothyroxine
#Depression/Bipolar disorder
-Continue Bupropion/Lamictal/Seroquel
#DVT prophylaxis
- On DVT/PE therapeutic dose Eliquis
#CODE STATUS: Full code
Anticipated Discharge: Today
Subjective/Interval History
-
Date of Service: June 17, 2024
Pt reports feeling better/stronger, SOB and cough still present but improved
Objective Data
-
Labs:
Laboratory Results
06/17/24
04:05
WBC 12.3 H
Hgb 11.7 L
Hct 35.3 L
Plt Count 210
Sodium 139
Potassium 4.6
Chloride 102
Carbon Dioxide 30
BUN 31 H
Creatinine 1.1 H
Glucose 94
Calcium 9.2
Total Bilirubin 0.8
AST 29
ALT 19
Alkaline Phosphatase 72
Vital Signs:
Vital Signs
Temp Pulse Resp BP Pulse Ox
97.9 F 73 18 110/65 94
06/17/24 12:26 06/17/24 12:07 06/17/24 12:07 06/17/24 12:07 06/17/24 12:26
I&O
06/16/24 06/17/24 06/18/24
06:59 06:59 06:59
Intake Total 475 / 475 1200 / 1200 240 / 240
Output Total 1300 / 1300 800 / 800
Balance -825 / -825 400 / 400 240 / 240
Review of Systems
-
History Source: Patient
Constitutional: Denies Fever or No Appetite
Respiratory: Reports Cough and Trouble Breathing
Cardiac: Denies Chest Pain
Abdomen/GI: Denies Abdominal Pain, Nausea, Vomiting, Diarrhea or Constipated
Genitourinary: Denies Dysuria or Difficulty Voiding
Physical Exam
-
General: Well Developed, Well Nourished and Respiratory Distress (with exertion)
HEENT: Normocephalic, Atraumatic and Moist Mucous Membranes
Respiratory: Clear to Auscultation; Negative Wheezes, Rales, Rhonchi or Crackles
Cardiac: Regular Rhythm and S1/S2; Negative Murmur, Calf Tenderness or Syd's Sign
GI: Soft, Nontender, Nondistended and Normal Bowel Sounds
Genito-urinary: No Costovertebral Tender
Musculoskeletal: No Clubbing, No Cyanosis and No Edema
Skin: Warm and Dry
Neuro: Awake, Alert and Oriented
Psych: Calm
--- NOTE | 2024-06-17 17:38 | W.DCSUMMARY ---
Addendum entered and electronically signed by Roby Strickland MD 06/17/24 23:06:
Read, reviewed, and agree. See same day progress note for additional details.
Dc Strickland MD
Original Note:
Documented by User: Gabrielle Juarez MD, Resident 06/17/24 18:43
Discharge Summary
Discharge Data
Date of Admission: 06/11/24
Date of Discharge: 06/17/24
-
Pending Results: No
Hospital Course
Discharging Physician : Gabrielle Juarez MD.; Roby Strickland MD.
Disposition : SNF
Primary care physician : Stephanie Darnell MD.
Principal Discharge diagnosis : Acute saddle pulmonary embolism with right heart strain, LLE DVT, acute hypoxic respiratory failure, hypertension, non-ischemic myocardial injury
Chronic Discharge diagnosis : Asthma, hypertension, hyperlipidemia, hypothyroidism
Hospital Course :
88-year-old female with past medical history of hypertension, hyperlipidemia, and asthma who was brought to the emergency department with worsening shortness of breath and pleuritic chest pain x several days. On arrival to the ED, she was afebrile
with pulse 100, RR 32, blood pressure 125/76, 91% O2 sat, requiring up to 15L NC. Chest CT showed acute extensive PE with saddle embolus. Heparin therapy was started in the ED. Echo showed dilated RV with reduced function, and PA pressure 45. She
was admitted to the ICU.
Unfortunately, she was deemed high risk for thrombectomy and/or heart catheter directed lytic therapy intervention. Discussion with had with patient and her daughter and the decision was made to pursue anticoagulation with heparin. Clinical status
continued to improve with improvement in dypnea, and steadily improving O2 requirement.
Elevated troponin peaked at 0.112. LE doppler revealed thrombus in LLE. She was successfully transitioned to DOAC with therapeutic starting dose Eliquis.
Toprol was continued at home dose of 25mg BID. Verapamil and doxazosin were initially held, with BP remaining stable.
Chronic home medications were continued as appropriate.
She was deemed stable for discharge on 3L O2 nasal cannula, to [facility] with the following instructions:
-Continue taking 2 tabs of Eliquis (5mg+5mg) twice daily through 06/21/2024.
-Then switch to 1 tab of Eliquis (5mg) twice daily starting from 06/22/2024 for 6 months.
-Take prednisone 10mg daily for 4 more days only (through 06/21/2024). There is no need for taper.
-Your blood pressures have remained stable without taking Verapamil and Doxazosin. Do not take these medications until you discuss taking them with your PCP.
-Follow up with clinical sciences professor Dr. Woodard in 2 to 4 weeks, or sooner if there is any worsening of symptoms.
-Follow up shortly with PCP
Important imaging findings :
Peripheral vascular ultrasound 06/12/2024:
On the right, there is no evidence for deep venous thrombosis from the right common femoral vein through popliteal vein. The right posterior tibial and peroneal veins are also patent. The proximal right greater saphenous vein is patent.
On the left, there is nonocclusive thrombus in the left mid and distal femoral vein, with occlusive thrombus within the left popliteal vein. The left posterior tibial vein appears patent as well as the left peroneal vein. The left common femoral
vein is patent as well as the proximal left greater saphenous vein.
Pulsatility of spectral Doppler waveforms bilaterally, suggesting elevated right heart pressure and/or tricuspid regurgitation.
Echocardiogram 06/11/2024:
Normal biventricular size and systolic function without regional wall motion abnormality.
Enlarged right ventricular size. Reduced right ventricular systolic function.
No significant valvular disease.
Chest CT PE study :
Saddle pulmonary thromboembolism with large volume bilateral clot burden. Secondary CT findings most suggestive of right heart strain.
Bilateral groundglass opacities may reflect mild pulmonary edema, hypoventilatory changes, and/or small airways disease.
CXR 06/11/24:
No focal consolidation, pleural effusion, or pneumothorax. Prominence of the pulmonary vascular markings. The cardiomediastinal silhouette is normal. Chronic degenerative changes of the spine.
Discharge Plan
-
Patient Disposition: [facility]SNF
Discharge Diagnosis/Procedures: Pulmonary embolism, LLE DVT, acute hypoxic respiratory failure, hypertension
Condition: Fair
Diet: Low Sodium
Activity: As tolerated
Driving Restrictions: Not until seen by your Dr
Bathing Restrictions: None
Instructions: Pulmonary embolism - Discharge instructions
Referrals:
Hreb Woodard MD [Active] - in two to four weeks
()
Stephanie Darnell MD [Family Provider] - in less than 1 week
Additional Discharge Medication Instructions: Continue Eliquis 2 tabs of Eliquis (5mg+5mg) twice daily through 06/21/2024.
Then switch to 1 tab of Eliquis (5mg) twice daily starting from 06/22/2024 for 6 months.
Take prednisone 10mg daily for 4 more days only (through 06/21/2024). There is no need for taper.
Follow up with Dr. Woodard shortly.
Prescriptions:
New
Eliquis 5 mg Tablet
10 mg PO BID Qty: 18 0RF
Eliquis 5 mg tablet
5 mg PO BID Qty: 60 0RF
Rx Instructions:
START on 06/22/2024
Continued
thiamine HCl (vitamin B1) 100 mg Tablet
100 mg PO HS
levothyroxine 100 mcg Tablet
100 mcg PO DAILY
lansoprazole 30 mg Capsule,Delayed Release(/Ec)
30 mg PO DAILY
fluticasone propion-salmeterol 500-50 mcg/dose Blister With Device
1 inh INHALATION R BID
montelukast 10 mg Tablet
10 mg PO HS
metoprolol succinate 25 mg Tablet Extended Release 24 Hr
25 mg PO BID
lamotrigine 100 mg Tablet
100 mg PO DAILY
ezetimibe 10 mg Tablet
10 mg PO DAILY
bupropion HCl 300 mg Tablet Extended Release 24 Hr
300 mg PO DAILY
quetiapine 50 mg Tablet
50 mg PO HS
Spiriva Respimat 2.5 mcg/actuation Mist
2 inh INHALATION R DAILY
magnesium oxide 400 mg magnesium Tablet
400 mg PO HS
prednisone 10 mg Tablet
10 mg PO DAILY 4 Days Qty: 4 0RF
Held
verapamil 180 mg Capsule,Ext Rel. Pellets 24 Hr
180 mg PO DAILY
Hold Instructions: Do not restart this medication until you have spoken to your PCP or real estate utilization officer
doxazosin 2 mg Tablet
2 mg PO BID
Hold Instructions: Do not restart this medication until you have discussed it with your PCP
Discharge Orders:
Discharge Patient (As Directed); Ordered 06/17/24
Ordered By: Gabrielle Juarez
Discharge Date and Time
Discharge Date/Time: 06/17/24 18:26
Print Language: CZECH

Documented by User: Roby Strickland MD 06/17/24 23:03
Discharge Summary
Discharge Data
Date of Admission: 06/11/24
Date of Discharge: 06/17/24
Discharge Plan
-
Patient Disposition: [facility]itentiary/SNF
Discharge Diagnosis/Procedures: Pulmonary embolism, LLE DVT, acute hypoxic respiratory failure, hypertension
Condition: Fair
Diet: Low Sodium
Activity: As tolerated
Driving Restrictions: Not until seen by your Dr
Bathing Restrictions: None
Instructions: Pulmonary embolism - Discharge instructions
Referrals:
Herb Woodard MD [Active] - in two to four weeks
()
Stephanie Darnell MD [Family Provider] - in less than 1 week
Additional Discharge Medication Instructions: Continue Eliquis 2 tabs of Eliquis (5mg+5mg) twice daily through 06/21/2024.
Then switch to 1 tab of Eliquis (5mg) twice daily starting from 06/22/2024 for 6 months.
Take prednisone 10mg daily for 4 more days only (through 06/21/2024). There is no need for taper.
Follow up with Dr. Woodard shortly.
Prescriptions:
New
Eliquis 5 mg Tablet
10 mg PO BID Qty: 18 0RF
Eliquis 5 mg tablet
5 mg PO BID Qty: 60 0RF
Rx Instructions:
START on 06/22/2024
Continued
thiamine HCl (vitamin B1) 100 mg Tablet
100 mg PO HS
levothyroxine 100 mcg Tablet
100 mcg PO DAILY
lansoprazole 30 mg Capsule,Delayed Release(Dr/Ec)
30 mg PO DAILY
fluticasone propion-salmeterol 500-50 mcg/dose Blister With Device
1 inh INHALATION R BID
montelukast 10 mg Tablet
10 mg PO HS
metoprolol succinate 25 mg Tablet Extended Release 24 Hr
25 mg PO BID
lamotrigine 100 mg Tablet
100 mg PO DAILY
ezetimibe 10 mg Tablet
10 mg PO DAILY
bupropion HCl 300 mg Tablet Extended Release 24 Hr
300 mg PO DAILY
quetiapine 50 mg Tablet
50 mg PO HS
Spiriva Respimat 2.5 mcg/actuation Mist
2 inh INHALATION R DAILY
magnesium oxide 400 mg magnesium Tablet
400 mg PO HS
prednisone 10 mg Tablet
10 mg PO DAILY 4 Days Qty: 4 0RF
Held
verapamil 180 mg Capsule,Ext Rel. Pellets 24 Hr
180 mg PO DAILY
Hold Instructions: Do not restart this medication until you have spoken to your PCP or real estate utilization officer
doxazosin 2 mg Tablet
2 mg PO BID
Hold Instructions: Do not restart this medication until you have discussed it with your PCP
Discharge Orders:
Discharge Patient (As Directed); Ordered 06/17/24
Ordered By: Gabrielle Juarez
Discharge Date and Time
Discharge Date/Time: 06/17/24 18:26
Print Language: CZECH
--- NOTE | 2024-06-17 18:11 | PTCARENOTE ---
report called to facility. ambulance product picker scheduled for 1644. received call that they were running 'late'. still awaiting transport. informed they 'are in the building'. patient has been dressed and ready since 1629. facility notified in delay of
transport
--- NOTE | 2024-06-17 18:24 | PTCARENOTE ---
patient care transfer to transport team. left with all belongings
== END 2024-06-17 18:26 | DRG 175 ==
LOC: ICU 15:18
PROVIDERS: Hospitalist; Physician Assistant; Student in an Organized Health Care Education/Training Program; ADMITTING PHYSICIAN Internal Medicine; ATTENDING PHYSICIAN Family Medicine; CONSULT PHYSICIAN Internal Medicine Critical Care Medicine; EMERGENCY PHYSICIAN Emergency Medicine; FAMILY PHYSICIAN Internal Medicine
DX: I26.92 Saddle embolus of pulmonary artery without acute cor pulmonale (principal); J96.01 Acute respiratory failure with hypoxia; I82.432 Acute embolism and thrombosis of left popliteal vein; I5A Non-ischemic myocardial injury (non-traumatic); N17.9 Acute kidney failure, unspecified; I13.10 Hypertensive heart and chronic kidney disease without heart failure, with stage 1 through stage 4 chronic kidney disease, or unspecified chronic kidney disease; N18.9 Chronic kidney disease, unspecified; J45.909 Unspecified asthma, uncomplicated; E78.5 Hyperlipidemia, unspecified; E03.9 Hypothyroidism, unspecified; Z79.890 Hormone replacement therapy; F31.9 Bipolar disorder, unspecified; F10.21 Alcohol dependence, in remission; K21.9 Gastro-esophageal reflux disease without esophagitis; I45.10 Unspecified right bundle-branch block; Z11.52 Encounter for screening for COVID-19
CPT/HCPCS: 71045; 71275; 80048; 80053; 82805; 83735; 83880; 84484; 85025; 85027; 85379; 85730; 87070; 87502; 87811; 90677; 93005; 93306; 93970; 94640; 96365; 97163; 97167; 97530; 97535; 99291; 99292; G0009; Q9967